=== PATIENT | male | born 1950 | race African-American/Black ===

== ENCOUNTER 2016-07-03 20:03 | Outpatient (CLI) | payer OTHER | END 2016-07-03 20:04 | disposition home or self-care (01) | DX: Z79.899 Other long term (current) drug therapy (principal); R11.0 Nausea; E11.9 Type 2 diabetes mellitus without complications ==

== ENCOUNTER 2016-10-24 14:42 | Inpatient (IN) | payer OTHER ==
[2016-10-24] MEDS ORDERED: cefTRIAXone 1 GM VIAL IVP STA (15:24)
[2016-10-24] MEDS ORDERED: SODIUM CHLORIDE 0.9% 1,000 ML IV ONE ×2 (15:24→16:44)
--- NOTE | 2016-10-24 15:31 | ED Physician Documentation ---
History of Present Illness - Stated complaint Stated Complaint: LT FOOT PX - Chief complaint Chief Complaint: Wound - History obtained from History obtained from: Patient - Additonal information Additional information: The patient is a 65-year-old diabetic male who has not been taking his diabetic medication for months since he ran out. He presents today because of increased swelling and oozing from a diabetic foot ulcer on his left second toe. It has been getting progressively worse over the past week. He has felt febrile at home. He reports similar ulcer in the past, and underwent debridement of a callus on that toe a few months ago. He is normally treated with metformin and insulin, but has not taken this medication for "months," because he ran out. He admits to polyuria and polydipsia. He denies cough, shortness of breath, abdominal pain, vomiting or diarrhea. He denies hospitalizations for DKA. Review of Systems Constitutional: reports: Fever, Chills, Fatigue Nose: denies: Congestion Throat: denies: Sore throat Cardiac: denies: Chest pain / pressure, Palpitations Respiratory: denies: Dyspnea, Cough GI: denies: Abdominal Pain, Nausea, Vomiting : denies: Dysuria Skin: denies: Rash Musculoskeletal: reports: Extremity pain (Left toe/foot). denies: Back pain Neurologic: reports: Generalized weakness. denies: Focal weakness, Headache Endocrine: reports: Polydypsia, Polyuria PD PAST MEDICAL HISTORY - Past Medical History Past Medical History: Yes Cardiovascular: Hypertension, High cholesterol Respiratory: None Endocrine/Autoimmune: Type 2 diabetes GI: GERD : None HEENT: None Psych: None Musculoskeletal: None Derm: None - Past Surgical History Past Surgical History: Yes Ortho: ACL reconstruction HEENT: Cataracts - Present Medications Home Medications: Ambulatory Orders Medication Instructions Recorded Confirmed Insulin Glargine [Lantus] 25 unit SUBQ QPM 03/31/13 12/29/13 metFORMIN [Glucophage] 1,000 mg PO ONCE 03/31/13 12/29/13 raNITIdine [Zantac] 150 mg PO DAILY 03/31/13 12/29/13 Metoprolol Tartrate 25 mg ORAL DAILY 12/29/13 12/29/13 - Allergies Allergies/Adverse Reactions: Allergies Allergy/AdvReac Type Severity Reaction Status Date / Time No Known Drug Allergies Allergy Verified 04/14/14 18:02 - Social History Does the pt smoke?: Yes Smoking Status: Current some day smoker Does the pt drink ETOH?: Yes Does the pt have substance abuse?: No - Immunizations Immunizations are current?: Yes Immunizations: TDAP current <10years PD ED PE NORMAL - Vitals Vital signs reviewed: Yes (Febrile, tachycardic, and hypertensive.) - General General: Alert and oriented X 3, Well developed/nourished - HEENT HEENT: Atraumatic, EOMI, Pharynx benign - Neck Neck: Supple, no meningeal sign, No adenopathy, No JVD - Cardiac Cardiac: No murmur, Other (Slightly rapid rate, regular rhythm) - Respiratory Respiratory: No respiratory distress, Clear bilaterally - Abdomen Abdomen: Soft, Non tender - Back Back: No CVA TTP - Derm Derm: No rash - Extremities Extremities: No edema, No calf tenderness / cord, Other (There is a weeping diabetic foot ulcer on the medial aspect of the left second toe. It has a very foul odor. There is swelling and mild surrounding erythema, without lymphangitic streaking.) - Neuro Neuro: Alert and oriented X 3, No motor deficit Results - Vitals Vitals: Vital Signs - 24 hr 10/24/16 14:55 Temperature 38.9 C H Heart Rate 109 H Respiratory 20 Rate Blood Pressure 153/79 H O2 Saturation 97 Oxygen O2 Source Room air - Labs Labs: Laboratory Tests 10/24/16 10/24/16 10/24/16 15:36 15:36 15:36 WBC 13.6 H RBC 4.19 L Hgb 12.7 L Hct 37.1 L MCV 88.4 MCH 30.3 MCHC 34.3 RDW 12.8 Plt Count 201 MPV 10.1 Neut # 11.4 H Lymph # 0.6 L [place] # 1.6 H Eos # 0.0 Baso # 0.1 Absolute Nucleated RBC 0.00 Nucleated RBCs 0.0 Sodium 129 L Potassium 4.0 Chloride 97 L Carbon Dioxide 24 Anion Gap 8.0 BUN 18 Creatinine 1.0 Estimated GFR (MDRD) 91 Glucose 295 H POC Whole Bld Glucose Lactic Acid 1.0 Calcium 8.8 Total Bilirubin 0.7 AST 26 ALT 29 Alkaline Phosphatase 88 Total Protein 7.6 Albumin 3.8 Globulin 3.8 Albumin/Globulin Ratio 1.0 Lipase 18 L 10/24/16 10/24/16 15:42 17:20 WBC RBC Hgb Hct MCV MCH MCHC RDW Plt Count MPV Neut # Lymph # [place] # Eos # Baso # Absolute Nucleated RBC Nucleated RBCs Sodium Potassium Chloride Carbon Dioxide Anion Gap BUN Creatinine Estimated GFR (MDRD) Glucose POC Whole Bld Glucose 309 H 247 H Lactic Acid Calcium Total Bilirubin AST ALT Alkaline Phosphatase Total Protein Albumin Globulin Albumin/Globulin Ratio Lipase - Rads (name of study) Left foot Radiology: Prelim report reviewed, EMP read contemporaneously, See rad report ( Soft tissue lesion. If clinical suspicion of osteomyelitis is high, further evaluation with MR scan or three-phase radionuclide bone scan may be helpful.) PD MEDICAL DECISION MAKING - ED course Complexity details: reviewed old records, reviewed results, re-evaluated patient , considered differential, d/w patient, d/w care consultant ED course: The patient's presentation is significant for diabetic foot ulcer with cellulitis. X-ray of the foot does not reveal subcutaneous emphysema or gross osteomyelitis. His blood sugar was initially elevated at 309, without evidence of ketoacidosis. Treatment in the emergency department included administration of normal saline 1 L IV, followed by normal saline at 250 mL/h. Ceftriaxone 1 g was administered IV. Repeat fingerstick blood sugar improved to 247. I discussed his condition with the hospitalist, who evaluated him in the emergency department and admitted him for further evaluation and treatment. 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
[2016-10-24 15:48] LABS: BASOPHILS # (AUTO) 0.1 10^3/uL (0.0-0.1); BASOPHILS % (AUTO) 0.6 %; EOSINOPHILS % (AUTO) 0.1 %; HCT - HEMATOCRIT 37.1 % (42.0-52.0); HGB - HEMOGLOBIN 12.7 g/dL (14.0-18.0); LYMPHOCYTES # (AUTO) 0.6 10^3/uL (1.5-3.5); LYMPHOCYTES % (AUTO) 4.1 %; MEAN CORPUSCULAR HEMOGLOBIN 30.3 pg (27.0-31.0); MEAN CORPUSCULAR HGB CONC 34.3 g/dL (32.0-36.0); MEAN CORPUSCULAR VOLUME 88.4 fL (80.0-94.0); MEAN PLATELET VOLUME 10.1 fL (7.4-11.4); MONOCYTES # (AUTO) 1.6 10^3/uL (0.0-1.0); MONOCYTES % (AUTO) 11.5 %; NEUTROPHILS # (AUTO) 11.4 10^3/uL (1.5-6.6); NEUTROPHILS % (AUTO) 83.7 %; RED BLOOD COUNT 4.19 10^6/uL (4.70-6.10); RED CELL DISTRIBUTION WIDTH 12.8 % (12.0-15.0); UNCORRECTED WHITE BLOOD COUNT 13.6 x10^3/uL; WHITE BLOOD COUNT 13.6 x10^3/uL (4.8-10.8)
[2016-10-24] MEDS ORDERED: cefTRIAXone 1 GM VIAL ONE (15:54)
[2016-10-24 15:56] LABS: BILIRUBIN,TOTAL 0.7 mg/dL (0.2-1.0); CALCIUM 8.8 mg/dL (8.5-10.3); TOTAL PROTEIN 7.6 g/dL (6.7-8.2)
--- NOTE | 2016-10-24 18:09 | XRAY Preliminary Report ---
Exam: XR Foot 3 View LT IMPRESSION: Soft tissue lesion. If clinical suspicion of osteomyelitis is high, further evaluation wi th MR scan or 3 phase radionuclide bone scan may be helpful. [facility] SITE ID: [id number]
--- NOTE | 2016-10-24 18:11 | XRAY Report ---
EXAM: LEFT FOOT RADIOGRAPHY EXAM DATE: 10/24/2016 05:48 PM. CLINICAL HISTORY: Diabetic ulcer left 2nd toe; ?osteo. COMPARISON: None. TECHNIQUE: 3 views. FINDINGS: Bones: Normal. No fractures or bone lesions. Joints: Normal. No subluxations. Soft Tissues: Mild soft tissue swelling with irregularity at the site of second toe ulcer. No foreign body. Extensive vascular calcification typical for diabetes. IMPRESSION: Soft tissue lesion. If clinical suspicion of osteomyelitis is high, further evaluation wi th MR scan or 3 phase radionuclide bone scan may be helpful. [facility] Referring Provider Line: [phone] SITE ID: [id number]
[2016-10-24] MEDS ORDERED: ONDANSETRON 4 MG/2 ML VIAL IVP PRN (18:16)
[2016-10-24] MEDS ORDERED: VANCOMYCIN PER PHARMACY IV SCH (19:00)
[2016-10-24] MEDS ORDERED: SODIUM CHLORIDE 0.9% IV SCH (19:00)
--- NOTE | 2016-10-24 19:01 | HISTORY & PHYSICAL EXAMINATION ---
Chief Complaint - Chief Complaint Chief Complaint: fever and diabetes ulcer History of Present Illness - Admitted From Admitted From:: emergence department - History Obtained From History obtained from: patient - History of Present Illness HPI Comment/Other: This is a 65-year-old male with significant past medical history of DM2, HTN, Hyperlipidmia, who present emergence department for evaluation of fever and ulcer at the second toe of left lower extremity. Patient report he has not taken his insulin for at least 4 months. When ask the reason why he did not take his insulin, patient report he has been fine "not any problem." Patient state he found his second toe became swelling about 4 days ago, then had drainage, and became foul smell. Patient also report he had fever at home. In the emergence room, he is febrile at 38.9. Patient denies any chest pain, headache, abdominal pain. There is no nausea, vomiting or diarrhea, vision changing, dysuria, or hematuria, GI bleeding. In emergence room lab test reveals some significantly test results: glucose 295 but negative ketone at urine and serum, lactic aced 1.0, WBC 13.6, Sodium 129. Xray of second toe reveals soft tissue lesion. Patient is admitted for evaluation of diabetes ulcer. Review of Systems - Constitutional Constitutional: reports: Fatigue, Fever. denies: Chills, Malaise, Poor appetite , Diaphoresis, Night sweats, Weight gain, Weight loss - Eyes Eyes: denies: Pain, Irritation, Amaurosis, Blurred vision, Spots in vision, Field loss, Vision loss, Dipolpia - Ears, Nose & Throat Ears, Nose & Throat: denies: Ear pain, Hearing loss, Hearing aids, Tinnitus, Vertigo, Nasal pain, Nosebleeds, Nasal congestion, Sore throat, Mouth lesions, Bleeding gums - Cardiovascular Cariovascular: denies: Irregular heart rate, Palpitations, Chest pain, Edema, Lightheadedness, Syncope, Exertional dyspnea, Orthopnea - Respiratory Respiratory: denies: Cough, Sputum production, Wheezing, Snoring, Hemoptysis, Orthopnea, SOB at rest, SOB with exertion, Apnea, Stridor - Gastrointestinal Gastrointestinal: denies: Abdominal pain, Abdominal distention, Constipation, Diarrhea, Change in bowel habits, Rectal bleeding, Black stools, Bloody stools, Nausea, Vomiting, Darvin blood emesis, Coffee grounds emesis, Reflux/heartburn, Poor appetite - Genitourinary Genitourinary: denies: Dysuria, Frequency, Urgency, Hematuria, Incontinence, Flank pain, Nocturia - Musculoskeletal Musculoskeletal: denies: Muscle pain, Back pain, Muscle aches, Stiffness, Limited range of motion, Muscle weakness, Gout, Joint pain - Integumentary Integumentary: reports: Lesions. denies: Rash, Pruritis, Dryness, Lumps, Acne, Pigment changes, Nail changes - Neurological Neurological: denies: General weakness, Focal weakness, Headache, Dizziness, Numbness, Memory problems, Pre-existing deficit, Abnormal gait, Seizures, Incoordination, Slurred speech - Psychiatric Psychiatric: denies: Depression, Anxiety, Suicidal, Delusions, Hallucinations, Homicidal - Endocrine Endocrine: reports: Polyuria, Polydypsia, Polyphagia. denies: Intolerance to cold, Intolerance to heat - Hematologic/Lymphatic Hematologic/Lymphatic: denies: Anemia, Bruising, Petechiae, Blood clots, Lymphadenopathy History - Past Medical History Cardiovascular: reports: Hypertension, High cholesterol Respiratory: reports: None Endocrine/Autoimmune: reports: Type 2 diabetes GI: reports: GERD : reports: None HEENT: reports: None Psych: reports: None Musculoskeletal: reports: None Derm: reports: None MRSA Hx?: No - Past Surgical History Ortho: reports: ACL reconstruction HEENT: reports: Cataracts - Family & Social History Family History: Mother: (Mom from [place], Dad from [place]), Father: Living arrangement: At home Living Situation: With spouse/s.o. - Substance History Use: Uses substance without health or social issues: Tobacco (before, quitted for 9 years) Abuse: Recurrent use of substance despite neg consequences: NONE Dependence: Experiences withdrawal or developed tolerances: NONE - POLST POLST Status: Full Code Meds/Allgy - Home Medications Home Medications: Ambulatory Orders Medication Instructions Recorded Confirmed Insulin Glargine [Lantus] 25 unit SUBQ QPM 03/31/13 12/29/13 metFORMIN [Glucophage] 1,000 mg PO ONCE 03/31/13 12/29/13 raNITIdine [Zantac] 150 mg PO DAILY 03/31/13 12/29/13 Metoprolol Tartrate 25 mg ORAL DAILY 12/29/13 12/29/13 - Allergies Allergies/Adverse Reactions: Allergies Allergy/AdvReac Type Severity Reaction Status Date / Time No Known Drug Allergies Allergy Verified 04/14/14 18:02 Exam - Vital Signs Reviewed Vital Signs: Yes Vital Signs: Vital Signs x48h Temp Pulse Resp BP Pulse Ox 10/24/16 14:55 38.9 C H 109 H 20 153/79 H 97 - Physical Exam General Appearance: positive: No acute distress, Alert. negative: Lethargic Eyes Bilateral: positive: Normal inspection, PERRL. negative: No lid inflammation, Conjunctivae nml ENT: positive: ENT inspection nml, Pharynx nml, No signs of dehydration. negative: Purulent nasal drainage, Pharyngeal erythema Neck: positive: Nml inspection, Thyroid nml, No JVD, Trachea midline. negative : Lymphadenopathy (R), Lymphadenopathy (L), Stiff neck, Swelling/bruising, Tracheal deviation Respiratory: positive: Chest non-tender, No respiratory distress, Breath sounds nml. negative: Wheezes, Rales, Rhonchi Cardiovascular: positive: Regular rate & rhythm, No murmur, No gallop. negative : Irregularly irregular, Systolic murmur, Diastolic murmur Peripheral Pulses: positive: 2+ Abdomen: positive: Non-tender, No organomegaly, Nml bowel sounds, No distention. negative: Tenderness, Guarding, Rebound Back: positive: Nml inspection. negative: CVA tenderness (R), CVA tenderness (L ) Skin: positive: Color nml, Warm, Dry, Other (drainage at the second toe laterial side of left lower extremity, mild to moderate black color of second toe.) Extremities: positive: Non-tender, Full ROM, Nml appearance. negative: Calf tenderness, Rukhsana's sign/cords Neurologic/Psychiatric: positive: Oriented x3, Motor nml, Sensation nml, Mood/ affect nml. negative: Sensory loss, Facial droop, Slurred/abnml speech, Depressed mood/affect Conclusion/Plan - Problem List (1) Diabetic foot ulcer Conclusion/Plan: uncontrolled diabetic foot ulcer, Xray indicate soft tissue lesion. Clinically the skin color is mild to moderate black but without necrosis, but with drainage , and foul smelling. 1, wound culture. pt already has antibiotics in ER, so blood culture is later to be draw in the meds floor. follow up wound culture 2, antibiotics: rocephin, and vancomycin 3, will do MRI to if osteomyolitis, follow up 4, wound care consult, follow recommendation, dressing changing Qualifiers: Diabetic foot ulcer location: toe Diabetes mellitus type: type 2 Laterality: left Non-pressure ulcer stage: unspecified non-pressure ulcer stage Qualified Code(s): E11.621 - Type 2 diabetes mellitus with foot ulcer; L97.529 - Non-pressure chronic ulcer of other part of left foot with unspecified severity (2) Diabetes mellitus with hyperglycemia Conclusion/Plan: hold metformin, initiate slide scale and follow protocol, check A1C Qualifiers: Diabetes mellitus type: type 2 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 Educate pt the importance of medical compliance for DM management. consult with social work for support (4) Hypertension Conclusion/Plan: stable, will resume home meds after reconciliation of pharmacy (5) GERD (gastroesophageal reflux disease) Conclusion/Plan: stable, add Pepcid - Lab Results Fish Bones: 10/25/16 06:00 10/25/16 06:00 Issues/Core Measures - Anticipated LOS Anticipated Stay Length: 2 or more midnights (expect more than two night for diabetes ulcer healing) - Issues Hospital Issues and Management Plan: Lovenox for DVT prophylaxis - DVT/VTE - Prophylaxis VTE/DVT Device ordered at admit?: Yes
[2016-10-24] MEDS: ACETAMINOPHEN 325 MG TABLET PO PRN (19:23)
[2016-10-24] MEDS ORDERED: ACETAMINOPHEN 325 MG TABLET PO ONE (19:26)
[2016-10-24 20:21] LABS: HEMOGLOBIN A1C 1.49 g/dL
--- NOTE | 2016-10-24 20:23 | CT Preliminary Report ---
Exam: CT Abdomen Angio IMPRESSION: 1. Negative angiogram. No aneurysm or dissection. 2. Cholelithiasis. [facility] SITE ID: [id number]
--- NOTE | 2016-10-24 20:24 | CT Report ---
EXAM: CT ANGIOGRAM ABDOMEN AND PELVIS WITH CONTRAST EXAM DATE: 10/24/2016 07:16 PM. CLINICAL HISTORY: AAA, bruit sound at abdomen. COMPARISONS: None. TECHNIQUE: Routine helical CT angiogram imaging was performed through the abdomen and pelvis in the a rterial phase. IV contrast: 100 cc Isovue-300. Enteric contrast: No. Reconstructions: Coronal, sagitt al, and 3D MIP reconstructions. In accordance with CT protocol optimization, one or more of the following dose reduction techniques w ere utilized for this exam: automated exposure control, adjustment of mA and/or KV based on patient s ize, or use of iterative reconstructive technique. FINDINGS: Vasculature: Normal. No aneurysm, dissection, or significant atherosclerotic disease of the abdominal aorta and iliac arteries. The visualized mesenteric and solid organ vascular structures are also wit hin normal limits. Lung Bases: Normal. Abdominal Solid Organs: Unremarkable liver, spleen, adrenal glands, pancreas, and kidneys. Multiple g allstones. No ductal dilation. Peritoneal Cavity: Normal. No free fluid, free air, or acute inflammatory process. Normal appendix. Pelvic Organs: Normal. The bladder and visualized pelvic organs are within normal limits. Bones: No significant abnormality. Other: None. IMPRESSION: 1. Negative angiogram. No aneurysm or dissection. 2. Cholelithiasis. [facility] Referring Provider Line: [phone] SITE ID: [id number]
[2016-10-24] MEDS: SODIUM CHLORIDE FLUSH 0.9% 10 ML SYRINGE IVP SCH (20:33)
[2016-10-24] MEDS: VANCOMYCIN INJ 1 GM in SODIUM CHLORIDE 0.9% 250 ML IV SCH (20:33)
[2016-10-24] MEDS: INSULIN ASPART 300 UNIT/3 ML PEN SUBQ SCH (20:36)
[2016-10-24] MEDS: SODIUM CHLORIDE 0.9% 1,000 ML IV SCH (22:39)
[2016-10-24 22:49] LABS: BILIRUBIN,URINE NEGATIVE (NEGATIVE)
[2016-10-24 22:51] LABS: UA CHARGE (STRIP ONLY) YES; UR CULTURE IF IND NOT INDICATED
[2016-10-25] MEDS: ACETAMINOPHEN 325 MG TABLET PO PRN ×2 (00:30→20:33)
[2016-10-25] MEDS: SODIUM CHLORIDE 0.9% 1,000 ML IV SCH ×3 (04:26→17:32)
[2016-10-25] MEDS: SODIUM CHLORIDE FLUSH 0.9% 10 ML SYRINGE IVP SCH ×3 (04:27→20:33)
[2016-10-25 06:15] LABS: BASOPHILS % (AUTO) 0.7 %; EOSINOPHILS % (AUTO) 0.4 %; HCT - HEMATOCRIT 35.2 % (42.0-52.0); HGB - HEMOGLOBIN 12.2 g/dL (14.0-18.0); LYMPHOCYTES % (AUTO) 7.7 %; MEAN CORPUSCULAR HEMOGLOBIN 30.8 pg (27.0-31.0); MEAN CORPUSCULAR HGB CONC 34.6 g/dL (32.0-36.0); MEAN CORPUSCULAR VOLUME 89.1 fL (80.0-94.0); MEAN PLATELET VOLUME 9.8 fL (7.4-11.4); MONOCYTES % (AUTO) 12.6 %; NEUTROPHILS % (AUTO) 78.6 %; RED BLOOD COUNT 3.95 10^6/uL (4.70-6.10); RED CELL DISTRIBUTION WIDTH 12.9 % (12.0-15.0); UNCORRECTED WHITE BLOOD COUNT 13.9 x10^3/uL; WHITE BLOOD COUNT 13.9 x10^3/uL (4.8-10.8)
[2016-10-25 06:28] LABS: ALBUMIN/GLOBULIN RATIO 0.9 (1.0-2.2); BILIRUBIN,TOTAL 0.8 mg/dL (0.2-1.0); MAGNESIUM 1.8 mg/dL (1.7-2.8); POTASSIUM 3.7 mmol/L (3.5-5.0); TOTAL PROTEIN 6.7 g/dL (6.7-8.2)
[2016-10-25] MEDS: VANCOMYCIN INJ 1 GM in SODIUM CHLORIDE 0.9% 250 ML IV SCH ×2 (06:35→18:20)
[2016-10-25 06:53] LABS: BAND NEUTROPHILS % (MANUAL) 2 %; LYMPHOCYTES % (MANUAL) 11 %; NEUTROPHILS % (MANUAL) 78 %; NP AUTO DIFFERENTIAL? YES; NP MAN DIFFERENTIAL? NO; PLATELET ESTIMATE, MANUAL NORMAL (130-450,000) (NORMAL); TOTAL CELLS COUNTED 100
[2016-10-25] MEDS: INSULIN ASPART 300 UNIT/3 ML PEN SUBQ SCH ×4 (08:24→20:32)
[2016-10-25] MEDS ORDERED: cefTRIAXone 1 GM VIAL IVP SCH (09:00)
[2016-10-25] MEDS: FAMOTIDINE 20 MG TABLET PO SCH (09:03)
[2016-10-25] MEDS: ENOXAPARIN 40 MG/0.4 ML SYRINGE SUBQ SCH (09:03)
[2016-10-25] MEDS: POLYETHYLENE GLYCOL 3350 17 GM PACKET PO SCH (09:03)
--- NOTE | 2016-10-25 11:24 | PROVIDER PROGRESS NOTE ---
Subjective - Prog Note Date Prog Note Date: 10/25/16 - Subjective Pt reports feeling: Improved Subjective: pt report he feel better, fever is down, no chill. pain is a good control. Current Medications - Current Medications Current Medications: Active Medications Acetaminophen (Tylenol) 650 mg PO Q4HR PRN PRN Reason: Pain 1 to 4 Last Admin: 10/25/16 00:30 Dose: 650 mg Acetaminophen/Hydrocodone Bitart ([place] 5/325) 1 tab PO Q4HR PRN PRN Reason: Pain 5 to 7 Ceftriaxone Sodium (Rocephin) 1 gm IVP DAILY [facility], [facility] Last Admin: 10/25/16 09:03 Dose: 1 gm Enoxaparin Sodium (Lovenox) 40 mg SUBQ DAILY [facility] Last Admin: 10/25/16 09:03 Dose: 40 mg Famotidine (Pepcid) 20 mg PO DAILY [facility] Last Admin: 10/25/16 09:03 Dose: 20 mg Sodium Chloride (Normal Saline 0.9%) 1,000 mls @ 125 mls/hr IV .Q8H [facility] Last Admin: 10/25/16 05:51 Dose: 125 mls/hr Vancomycin HCl 1 gm/ Sodium (Chloride) 250 mls @ 167 mls/hr IV Q12H [facility] Last Admin: 10/25/16 06:35 Dose: 167 mls/hr Insulin Aspart (Novolog) 2 - 10 unit SUBQ 0800,1200,1700,2100 [facility] PRN Reason: Protocol Last Admin: 10/25/16 08:24 Dose: 2 unit Ondansetron HCl (Zofran Inj) 4 mg IVP Q6HR PRN PRN Reason: Nausea / Vomiting Polyethylene Glycol (Miralax) 17 gm PO DAILY [facility] Last Admin: 10/25/16 09:03 Dose: 17 gm Sodium Chloride (Normal Saline Flush 0.9%) 10 ml IVP PRN PRN PRN Reason: NEEDED PER PROVIDER ORDERS Sodium Chloride (Normal Saline Flush 0.9%) 10 ml IVP Q8HR [facility] Last Admin: 10/25/16 04:27 Dose: Not Given Insulin Glargine [Lantus] 25 unit SUBQ QPM 03/31/13 metFORMIN [Glucophage] 1,000 mg PO ONCE 03/31/13 raNITIdine [Zantac] 150 mg PO DAILY 03/31/13 Metoprolol Tartrate 25 mg ORAL DAILY 12/29/13 Objective - Vital Signs/Intake & Output Vital Signs: Vital Signs x48h Temp Pulse Resp BP Pulse Ox 10/25/16 11:01 37.9 C H 85 18 132/71 H 98 10/25/16 08:12 37.7 C H 88 18 136/56 H 99 10/25/16 05:40 37.9 C H 89 16 144/79 H 99 Intake & Output: Intake & Output 10/22/16 10/23/16 10/24/16 10/25/16 23:59 23:59 23:59 23:59 Intake Total 1148 1549 Output Total 675 600 Balance 473 949 - Objective General Appearance: positive: No acute distress, Alert. negative: Lethargic Eyes Bilateral: positive: Normal inspection, PERRL. negative: No lid inflammation, Conjunctivae nml ENT: positive: ENT inspection nml, Pharynx nml. negative: Purulent nasal drainage, Pharyngeal erythema Neck: positive: Nml inspection, Thyroid nml, Trachea midline. negative: Thyromegaly, Lymphadenopathy (R), Lymphadenopathy (L), Stiff neck, Swelling/ bruising Respiratory: positive: Chest non-tender, No respiratory distress, Breath sounds nml. negative: Wheezes, Rales, Rhonchi Cardiovascular: positive: Regular rate & rhythm, No murmur, No gallop. negative : Bradycardia, Systolic murmur, Diastolic murmur Peripheral Pulses: 2+ Radial (R), 2+ Radial (L), 2+ Dorsalis pedis (R), 2+ Dorsalis pedis (L) Abdomen: positive: Non-tender, Nml bowel sounds, No distention. negative: Tenderness, Guarding, Rebound Back: positive: Nml inspection. negative: CVA tenderness (R), CVA tenderness (L ) Skin: positive: Color nml (except the second toe), Warm, Dry, Other (bilateral color changing on the second toe. left second toe with swelling, black color, and drainage.). negative: Diaphoresis Extremities: positive: Non-tender, Full ROM, Nml appearance. negative: Calf tenderness, Joint swelling Neurologic/Psychiatric: positive: Oriented x3, Motor nml, Sensation nml, Mood/ affect nml. negative: Sensory loss, Facial droop, Slurred/abnml speech, Depressed mood/affect - Lab Results Fish Bones: 10/25/16 06:00 10/25/16 06:00 Other Labs: Lab Results x24hrs 10/25/16 10/25/16 10/25/16 Range/Units 10:39 07:26 06:00 WBC (4.8-10.8) x10^3/uL RBC (4.70-6.10) 10^6/uL Hgb (14.0-18.0) g/dL Hct (42.0-52.0) % MCV (80.0-94.0) fL MCH (27.0-31.0) pg MCHC (32.0-36.0) g/dL RDW (12.0-15.0) % Plt Count (130-450) 10^3/uL MPV (7.4-11.4) fL Neut # Lymph # [place] # Eos # Baso # Absolute Nucleated RBC Total Counted Band Neuts % (Manual) (0 - 10) % Neutrophils # (Manual) (1.5-6.6) 10^3/uL Lymphocytes # (Manual) (1.5-3.5) 10^3/uL Monocytes # (Manual) (0.0-1.0) 10^3/uL Nucleated RBCs Differential Comment Platelet Estimate (NORMAL) RBC Morph Micro Appear (NORMAL) Sodium 134 L (135-145) mmol/L Potassium 3.7 (3.5-5.0) mmol/L Chloride 103 (101-111) mmol/L Carbon Dioxide 26 (21-32) mmol/L Anion Gap 5.0 L (6-13) BUN 14 (6-20) mg/dL Creatinine 1.0 (0.6-1.2) mg/dL Estimated GFR (MDRD) 91 (>89) Glucose 186 H (70-100) mg/dL POC Whole Bld Glucose 295 H 173 H (70 - 100) mg/dL Calcium 8.0 L (8.5-10.3) mg/dL Magnesium 1.8 (1.7-2.8) mg/dL Total Bilirubin 0.8 (0.2-1.0) mg/dL AST 37 (10-42) IU/L ALT 37 (10-60) IU/L Alkaline Phosphatase 81 (42-121) IU/L Total Protein 6.7 (6.7-8.2) g/dL Albumin 3.1 L (3.2-5.5) g/dL Globulin 3.6 (2.1-4.2) g/dL Albumin/Globulin Ratio 0.9 L (1.0-2.2) Urine Color Urine Clarity (CLEAR) Urine pH (5.0-7.5) PH Ur Specific [place] (1.002-1.030) Urine Protein (NEGATIVE) mg/dL Urine Glucose (UA) (NEGATIVE) mg/dL Urine Ketones (NEGATIVE) mg/dL Urine Occult Blood (NEGATIVE) Urine Nitrite (NEGATIVE) Urine Bilirubin (NEGATIVE) Urine Urobilinogen (NORMAL) E.U./dL Ur Leukocyte Esterase (NEGATIVE) Ur Microscopic Review Urine Culture Comments Urine Opiates Screen (NEGATIVE) Ur Oxycodone Screen (NEGATIVE) Urine Methadone Screen (NEGATIVE) Ur Propoxyphene Screen (NEGATIVE) Ur Barbiturates Screen (NEGATIVE) Ur Tricyclics Screen (NEGATIVE) Ur Phencyclidine Scrn (NEGATIVE) Ur Amphetamine Screen (NEGATIVE) U Methamphetamines Scrn (NEGATIVE) U Benzodiazepines Scrn (NEGATIVE) Urine Cocaine Screen (NEGATIVE) U Cannabinoids Screen (NEGATIVE) 10/25/16 10/24/16 10/24/16 Range/Units 06:00 22:34 19:38 WBC 13.9 H (4.8-10.8) x10^3/uL RBC 3.95 L (4.70-6.10) 10^6/uL Hgb 12.2 L (14.0-18.0) g/dL Hct 35.2 L (42.0-52.0) % MCV 89.1 (80.0-94.0) fL MCH 30.8 (27.0-31.0) pg MCHC 34.6 (32.0-36.0) g/dL RDW 12.9 (12.0-15.0) % Plt Count 195 (130-450) 10^3/uL MPV 9.8 (7.4-11.4) fL Neut # Not Reportable Lymph # Not Reportable [place] # Not Reportable Eos # Not Reportable Baso # Not Reportable Absolute Nucleated RBC Not Reportable Total Counted 100 Band Neuts % (Manual) 2 (0 - 10) % Neutrophils # (Manual) 11.1 H (1.5-6.6) 10^3/uL Lymphocytes # (Manual) 1.5 (1.5-3.5) 10^3/uL Monocytes # (Manual) 1.3 H (0.0-1.0) 10^3/uL Nucleated RBCs Not Reportable Differential Comment MANUAL DIFFERENTIAL Platelet Estimate NORMAL (130-450,000) (NORMAL) RBC Morph Micro Appear NORMAL APPEARANCE (NORMAL) Sodium (135-145) mmol/L Potassium (3.5-5.0) mmol/L Chloride (101-111) mmol/L Carbon Dioxide (21-32) mmol/L Anion Gap (6-13) BUN (6-20) mg/dL Creatinine (0.6-1.2) mg/dL Estimated GFR (MDRD) (>89) Glucose (70-100) mg/dL POC Whole Bld Glucose 194 H (70 - 100) mg/dL Calcium (8.5-10.3) mg/dL Magnesium (1.7-2.8) mg/dL Total Bilirubin (0.2-1.0) mg/dL AST (10-42) IU/L ALT (10-60) IU/L Alkaline Phosphatase (42-121) IU/L Total Protein (6.7-8.2) g/dL Albumin (3.2-5.5) g/dL Globulin (2.1-4.2) g/dL Albumin/Globulin Ratio (1.0-2.2) Urine Color YELLOW Urine Clarity CLEAR (CLEAR) Urine pH 5.0 (5.0-7.5) PH Ur Specific [place] 1.015 (1.002-1.030) Urine Protein TRACE (NEGATIVE) mg/dL Urine Glucose (UA) >=1000 H (NEGATIVE) mg/dL Urine Ketones NEGATIVE (NEGATIVE) mg/dL Urine Occult Blood TRACE-INTA (NEGATIVE) Urine Nitrite NEGATIVE (NEGATIVE) Urine Bilirubin NEGATIVE (NEGATIVE) Urine Urobilinogen 0.2 (NORMAL) (NORMAL) E.U./dL Ur Leukocyte Esterase NEGATIVE (NEGATIVE) Ur Microscopic Review NOT INDICATED Urine Culture Comments NOT INDICATED Urine Opiates Screen NEGATIVE (NEGATIVE) Ur Oxycodone Screen NEGATIVE (NEGATIVE) Urine Methadone Screen NEGATIVE (NEGATIVE) Ur Propoxyphene Screen NEGATIVE (NEGATIVE) Ur Barbiturates Screen NEGATIVE (NEGATIVE) Ur Tricyclics Screen NEGATIVE (NEGATIVE) Ur Phencyclidine Scrn NEGATIVE (NEGATIVE) Ur Amphetamine Screen NEGATIVE (NEGATIVE) U Methamphetamines Scrn NEGATIVE (NEGATIVE) U Benzodiazepines Scrn NEGATIVE (NEGATIVE) Urine Cocaine Screen NEGATIVE (NEGATIVE) U Cannabinoids Screen NEGATIVE (NEGATIVE) Assessment/Plan - Problem List (1) Diabetic foot ulcer Impression: pt's fever is graduate downing, continue antibiotics to treat order MRI to R/O osteomyeolitis, will follow up if consult to orthopedics Qualifiers: Diabetic foot ulcer location: toe Diabetes mellitus type: type 2 Laterality: left Non-pressure ulcer stage: unspecified non-pressure ulcer stage Qualified Code(s): E11.621 - Type 2 diabetes mellitus with foot ulcer; L97.529 - Non-pressure chronic ulcer of other part of left foot with unspecified severity (2) Diabetes mellitus with hyperglycemia Impression: pt did not take insulin at home for at least four months. A1C is 12 now. Tight control pt's glucose level, add high slide scale will adjust insulin follow glucose level Qualifiers: Diabetes mellitus type: type 2 Diabetes mellitus fdc insulin use: unspecified fdc insulin use status Qualified Code(s): E11.65 - Type 2 diabetes mellitus with hyperglycemia (3) Medical non-compliance Impression: continue to education to pt the importance of medical compliance. (4) Hypertension Impression: stable, will resume home meds after reconciliation from pharmacy (5) GERD (gastroesophageal reflux disease) Impression: stable, on Pepcid
[2016-10-25] MEDS ORDERED: GADOBUTROL 10 MMOL/10 ML VIAL IVP ONE (16:59)
--- NOTE | 2016-10-25 17:50 | MRI Preliminary Report ---
Exam: MRI Foot LT W/WO IMPRESSION: 1. Osteomyelitis of the base of the middle phalanx of the second digit. Surrounding soft tissue infla mmation. Probable soft tissue inflammation of the forefoot both plantar and dorsal aspects. 2. No visible abscess. [facility] SITE ID: [id number]
--- NOTE | 2016-10-25 17:56 | MRI Report ---
EXAM: LEFT FOREFOOT MRI WITHOUT AND WITH CONTRAST EXAM DATE: 10/25/2016 05:26 p.m. CLINICAL HISTORY: Left second digit swelling and discoloration. Diabetic. Question osteomyelitis. COMPARISON: None. TECHNIQUE: Multiplanar, multisequence T1-weighted and fluid-sensitive sequences of the forefoot befor e and after administration of intravenous contrast. IV contrast: 9 mL of Gadavist. Other: None. FINDINGS: Bones: There is low T1, high T2 signal change in the base of the middle phalanx of the second digit w ith accompanying contrast enhancement and surrounding soft tissue swelling. The findings are consiste nt with osteomyelitis. Marrow edema is also visible in the head of the proximal phalanx of the second digit. Joints: Mild osteoarthritis of the first metatarsophalangeal joint and the interphalangeal joint of t he great toe. There is moderate osteoarthritis of the remaining interphalangeal joints. Articular Cartilage: See above. Ligaments: The visualized collateral ligaments are intact. Tendons: The flexor and extensor tendons are unremarkable. Musculature: There is fatty atrophy of the intrinsic muscles of the foot. There is minimal edema of t he muscles, which is most likely reactive. Other: There is subcutaneous edema of the dorsum and plantar aspect of the foot and digits. Soft tiss ue inflammation is most marked in the second digit. There is no visible abscess. IMPRESSION: 1. Osteomyelitis of the base of the middle phalanx of the second digit. Surrounding soft tissue infla mmation. Probable soft tissue inflammation of the forefoot both plantar and dorsal aspects. 2. No visible abscess. [facility] SECTION Referring Provider Line: [phone] SITE ID: [id number]
[2016-10-26] MEDS: SODIUM CHLORIDE 0.9% 1,000 ML IV SCH ×3 (02:18→16:24)
[2016-10-26] MEDS: SODIUM CHLORIDE FLUSH 0.9% 10 ML SYRINGE IVP SCH ×3 (05:36→22:14)
[2016-10-26] MEDS: VANCOMYCIN INJ 1 GM in SODIUM CHLORIDE 0.9% 250 ML IV SCH (06:39)
[2016-10-26] MEDS: ACETAMINOPHEN 325 MG TABLET PO PRN ×2 (07:52→20:45)
--- NOTE | 2016-10-26 08:13 | PROVIDER PROGRESS NOTE ---
Subjective - Prog Note Date Prog Note Date: 10/26/16 - Subjective Pt reports feeling: Improved Subjective: pt state he feel better, pain is good controlled, no drainage. Current Medications - Current Medications Current Medications: Active Medications Acetaminophen (Tylenol) 650 mg PO Q4HR PRN PRN Reason: Pain 1 to 4 Last Admin: 10/26/16 07:52 Dose: 650 mg Acetaminophen/Hydrocodone Bitart ([place] 5/325) 1 tab PO Q4HR PRN PRN Reason: Pain 5 to 7 Enoxaparin Sodium (Lovenox) 40 mg SUBQ DAILY [facility] Last Admin: 10/26/16 08:40 Dose: 40 mg Famotidine (Pepcid) 20 mg PO DAILY [facility] Last Admin: 10/26/16 08:39 Dose: 20 mg Sodium Chloride (Normal Saline 0.9%) 1,000 mls @ 125 mls/hr IV .Q8H [facility] Last Admin: 10/26/16 02:18 Dose: 125 mls/hr Piperacillin Sod/Tazobactam (Sod 3.375 gm/ Sodium Chloride) 100 mls @ 200 mls/ hr IV Q6H [facility] Last Admin: 10/26/16 08:40 Dose: 200 mls/hr Insulin Aspart (Novolog) 3 - 11 unit SUBQ 0800,1200,1700,2100 [facility] PRN Reason: Protocol Last Admin: 10/26/16 12:00 Dose: 7 unit Insulin Aspart (Novolog) 3 unit SUBQ TIDWM [facility] Stop: 10/27/16 04:00 Insulin Glargine (Lantus Solostar) 25 unit SUBQ QPM [facility] Metoprolol Tartrate (Lopressor) 25 mg PO DAILY [facility] Last Admin: 10/26/16 08:39 Dose: 25 mg Ondansetron HCl (Zofran Inj) 4 mg IVP Q6HR PRN PRN Reason: Nausea / Vomiting Polyethylene Glycol (Miralax) 17 gm PO DAILY [facility] Last Admin: 10/26/16 08:40 Dose: Not Given Sodium Chloride (Normal Saline Flush 0.9%) 10 ml IVP PRN PRN PRN Reason: NEEDED PER PROVIDER ORDERS Sodium Chloride (Normal Saline Flush 0.9%) 10 ml IVP Q8HR [facility] Last Admin: 10/26/16 05:36 Dose: Not Given Insulin Glargine [Lantus] 25 unit SUBQ QPM 03/31/13 metFORMIN [Glucophage] 1,000 mg PO ONCE 03/31/13 raNITIdine [Zantac] 150 mg PO DAILY 03/31/13 Metoprolol Tartrate 25 mg ORAL DAILY 12/29/13 Objective - Vital Signs/Intake & Output Vital Signs: Vital Signs x48h Temp Pulse Resp BP Pulse Ox 10/26/16 04:18 37.8 C H 85 16 153/74 H 99 Intake & Output: Intake & Output 10/23/16 10/24/16 10/25/16 10/26/16 23:59 23:59 23:59 23:59 Intake Total 1148 4367 1377 Output Total 675 2320 Balance 473 2047 1377 - Objective General Appearance: positive: No acute distress, Alert. negative: Lethargic Eyes Bilateral: positive: Normal inspection, PERRL. negative: No lid inflammation, Conjunctivae nml ENT: positive: ENT inspection nml, Pharynx nml, No signs of dehydration. negative: Purulent nasal drainage, Pharyngeal erythema Neck: positive: Nml inspection, Thyroid nml, Trachea midline. negative: Thyromegaly, Lymphadenopathy (R), Lymphadenopathy (L), Stiff neck, Swelling/ bruising Respiratory: positive: Chest non-tender, No respiratory distress, Breath sounds nml. negative: Wheezes, Rales, Rhonchi Cardiovascular: positive: Regular rate & rhythm, No murmur, No gallop. negative : Tachycardia, Bradycardia, Systolic murmur, Diastolic murmur Peripheral Pulses: 2+ Radial (R), 2+ Radial (L), 2+ Dorsalis pedis (R), 2+ Dorsalis pedis (L) Abdomen: positive: Non-tender, Nml bowel sounds, No distention. negative: Tenderness, Guarding, Rebound Back: positive: Nml inspection. negative: CVA tenderness (R), CVA tenderness (L ) Skin: positive: Warm, Dry, Laceration (cm), Other (wound and ulcer at left second toe). negative: Diaphoresis Extremities: positive: Non-tender, Full ROM. negative: Calf tenderness, Rukhsana' s sign/cords Neurologic/Psychiatric: positive: Oriented x3, Sensation nml, Mood/affect nml. negative: Sensory loss, Facial droop, Slurred/abnml speech, Depressed mood/ affect - Lab Results Fish Bones: 10/26/16 08:58 10/26/16 08:58 Other Labs: Lab Results x24hrs 10/26/16 10/26/16 10/25/16 Range/Units 07:25 06:27 20:07 POC Whole Bld Glucose 207 H 268 H (70 - 100) mg/dL Last Dose Date 10-25-16 Last Dose Time 1900 Vancomycin Trough 8.7 (5.0-15.0) ug/mL 10/25/16 10/25/16 Range/Units 17:24 10:39 POC Whole Bld Glucose 160 H 295 H (70 - 100) mg/dL Last Dose Date Last Dose Time Vancomycin Trough (5.0-15.0) ug/mL Assessment/Plan - Problem List (1) Diabetic foot ulcer Impression: called orthopedics surgery, consult with surgeon. Dr. Carter came to see pt, pt is planing to have surgery tomorrow change rocephin to zosyn to cover for pseudo. since pt's temperature is not fever but slight above 37 degree wound consult, follow up recommendation. dressing changing Qualifiers: Diabetic foot ulcer location: toe Diabetes mellitus type: type 2 Laterality: left Non-pressure ulcer stage: unspecified non-pressure ulcer stage Qualified Code(s): E11.621 - Type 2 diabetes mellitus with foot ulcer; L97.529 - Non-pressure chronic ulcer of other part of left foot with unspecified severity (2) Diabetes mellitus with hyperglycemia Impression: glucose is still some high. pt's home insulin dosage and type is not reconciliated yet, call pharmacy, she state because of weekend, she can not confirm with his doctor. 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
[2016-10-26] MEDS: METOPROLOL TARTRATE 25 MG TABLET PO SCH (08:39)
[2016-10-26] MEDS: FAMOTIDINE 20 MG TABLET PO SCH (08:39)
[2016-10-26] MEDS: PIPERACILLIN/TAZOBACTAM 3.375 GM in SODIUM CHLORIDE 0.9% MINIBAG 100 ML IV SCH ×3 (08:40→20:45)
[2016-10-26] MEDS: ENOXAPARIN 40 MG/0.4 ML SYRINGE SUBQ SCH (08:40)
[2016-10-26] MEDS: POLYETHYLENE GLYCOL 3350 17 GM PACKET PO SCH (08:40)
[2016-10-26] MEDS: INSULIN ASPART 300 UNIT/3 ML PEN SUBQ SCH ×6 (08:40→22:12)
[2016-10-26 09:15] LABS: ALBUMIN/GLOBULIN RATIO 0.8 (1.0-2.2); BILIRUBIN,TOTAL 0.5 mg/dL (0.2-1.0); CREATININE 0.8 mg/dL (0.6-1.2); POTASSIUM 3.8 mmol/L (3.5-5.0); TOTAL PROTEIN 6.7 g/dL (6.7-8.2)
[2016-10-26 09:18] LABS: BASOPHILS # (AUTO) 0.1 10^3/uL (0.0-0.1); BASOPHILS % (AUTO) 0.7 %; EOSINOPHILS # (AUTO) 0.1 10^3/uL (0.0-0.7); EOSINOPHILS % (AUTO) 0.6 %; HCT - HEMATOCRIT 34.9 % (42.0-52.0); HGB - HEMOGLOBIN 11.9 g/dL (14.0-18.0); LYMPHOCYTES % (AUTO) 9.4 %; MEAN CORPUSCULAR HEMOGLOBIN 30.5 pg (27.0-31.0); MEAN CORPUSCULAR HGB CONC 34.2 g/dL (32.0-36.0); MEAN CORPUSCULAR VOLUME 89.1 fL (80.0-94.0); MONOCYTES # (AUTO) 1.2 10^3/uL (0.0-1.0); NEUTROPHILS # (AUTO) 7.9 10^3/uL (1.5-6.6); NEUTROPHILS % (AUTO) 77.3 %; RED BLOOD COUNT 3.92 10^6/uL (4.70-6.10); RED CELL DISTRIBUTION WIDTH 12.7 % (12.0-15.0); UNCORRECTED WHITE BLOOD COUNT 10.3 x10^3/uL; WHITE BLOOD COUNT 10.3 x10^3/uL (4.8-10.8)
--- NOTE | 2016-10-26 11:58 | CONSULTATION NOTE ---
DATE OF CONSULTATION: 10/26/2016 00:00:00 REQUESTING PROVIDER: REASON FOR CONSULTATION: Osteomyelitis, left second toe. HISTORY OF PRESENT ILLNESS: The patient is a 65-year-old diabetic male who for a period of time has b een negligent in using his insulin for chronic diabetes. The patient has developed chronic oozing of the second toe and swelling of his foot, and because of this with worsening and feeling of malaise an d fevers, the patient came to the emergency room and was found to have an ulceration of his second to e and a very swollen foot with workup revealing osteomyelitis of the second toe. The patient's history and physical exam are delineated well in his admit note. The examination today shows a generalized swelling of the left foot with some ulceration of the second toe on its medial bessie rder at the PIP joint level. There is no great drainage occurring, but there is enlargement and foul smell. The proximal foot is mildly swollen, but there is no evidence of spreading abscess or cellulit is. His neurovascular exam shows diminished sensation, otherwise intact. He does not have generalized lymphadenopathy. IMPRESSION: The patient has osteomyelitis of left second toe as documented by MRI scan with ulceratio n and multiorganism infection most likely. RECOMMENDATION: Second toe amputation at the MP joint level. I have discussed this procedure with the patient, he is prepared to proceed and understands potential risks and complications. Surgery schedu led for 10/27/2016. JOB #: [id number] EXT JOB #:[id number]
[2016-10-26] MEDS: VANCOMYCIN 1.25 GM/NS 250 ML 250 ML IV SCH (18:35)
[2016-10-26] MEDS ORDERED: INSULIN GLARGINE 300 UNIT/3 ML PEN SUBQ SCH (21:00)
[2016-10-26] MEDS: INSULIN GLARGINE 300 UNIT/3 ML PEN SUBQ SCH (22:13)
[2016-10-27] MEDS: PIPERACILLIN/TAZOBACTAM 3.375 GM in SODIUM CHLORIDE 0.9% MINIBAG 100 ML IV SCH ×2 (02:14→08:42)
[2016-10-27] MEDS: SODIUM CHLORIDE 0.9% 1,000 ML IV SCH ×3 (02:15→19:01)
[2016-10-27] MEDS: HYDROcod/ACETAM 5/325 MG TABLET PO PRN ×2 (02:17→06:31)
[2016-10-27] MEDS: VANCOMYCIN 1.25 GM/NS 250 ML 250 ML IV SCH ×2 (06:31→20:04)
[2016-10-27] MEDS: SODIUM CHLORIDE FLUSH 0.9% 10 ML SYRINGE IVP SCH ×3 (06:52→21:06)
[2016-10-27] MEDS: INSULIN ASPART 300 UNIT/3 ML PEN SUBQ SCH ×4 (08:38→21:02)
[2016-10-27] MEDS: METOPROLOL TARTRATE 25 MG TABLET PO SCH (08:39)
[2016-10-27] MEDS: ENOXAPARIN 40 MG/0.4 ML SYRINGE SUBQ SCH (08:39)
[2016-10-27] MEDS: FAMOTIDINE 20 MG TABLET PO SCH (08:39)
[2016-10-27] MEDS: POLYETHYLENE GLYCOL 3350 17 GM PACKET PO SCH (08:40)
--- NOTE | 2016-10-27 08:43 | PROVIDER PROGRESS NOTE ---
Subjective - Subjective Pt reports feeling: Improved Subjective: patient report he feel better. pt's state pt began his second toe infection from 02/21, not as pt report to me his infection began four days ago. pt will have the surgery to remove the left second toe today Current Medications - Current Medications Current Medications: Active Medications Acetaminophen (Tylenol) 650 mg PO Q4HR PRN PRN Reason: Pain 1 to 4 Last Admin: 10/26/16 20:45 Dose: 650 mg Acetaminophen/Hydrocodone Bitart ([place] 5/325) 1 tab PO Q4HR PRN PRN Reason: Pain 5 to 7 Last Admin: 10/27/16 06:31 Dose: 1 tab Enoxaparin Sodium (Lovenox) 40 mg SUBQ DAILY [facility] Last Admin: 10/27/16 08:39 Dose: Not Given Famotidine (Pepcid) 20 mg PO DAILY [facility] Last Admin: 10/27/16 08:39 Dose: Not Given Sodium Chloride (Normal Saline 0.9%) 1,000 mls @ 125 mls/hr IV .Q8H [facility] Last Admin: 10/27/16 02:15 Dose: 125 mls/hr Piperacillin Sod/Tazobactam (Sod 3.375 gm/ Sodium Chloride) 100 mls @ 200 mls/ hr IV Q6H [facility] Last Admin: 10/27/16 08:42 Dose: 200 mls/hr Vancomycin/Sodium Chloride (Vanco/Sod Chloride 0.9%) 250 mls @ 160 mls/hr IV Q12H [facility] Last Admin: 10/27/16 06:31 Dose: 160 mls/hr Insulin Aspart (Novolog) 3 - 11 unit SUBQ 0800,1200,1700,2100 [facility] PRN Reason: Protocol Last Admin: 10/27/16 08:38 Dose: Not Given Insulin Glargine (Lantus Solostar) 5 unit SUBQ QPM [facility] Last Admin: 10/26/16 22:13 Dose: 5 unit Metoprolol Tartrate (Lopressor) 25 mg PO DAILY [facility] Last Admin: 10/27/16 08:39 Dose: 25 mg Ondansetron HCl (Zofran Inj) 4 mg IVP Q6HR PRN PRN Reason: Nausea / Vomiting Polyethylene Glycol (Miralax) 17 gm PO DAILY [facility] Last Admin: 10/27/16 08:40 Dose: Not Given Sodium Chloride (Normal Saline Flush 0.9%) 10 ml IVP PRN PRN PRN Reason: NEEDED PER PROVIDER ORDERS Sodium Chloride (Normal Saline Flush 0.9%) 10 ml IVP Q8HR [facility] Last Admin: 10/27/16 06:52 Dose: Not Given Insulin Glargine [Lantus] 25 unit SUBQ QPM 03/31/13 metFORMIN [Glucophage] 1,000 mg PO ONCE 03/31/13 raNITIdine [Zantac] 150 mg PO DAILY 03/31/13 Metoprolol Tartrate 25 mg ORAL DAILY 12/29/13 Objective - Vital Signs/Intake & Output Vital Signs: Vital Signs x48h Temp Pulse Resp BP Pulse Ox 10/27/16 07:44 37.4 C 80 16 144/78 H 98 10/27/16 04:11 37.6 C H 84 16 142/73 H 95 Intake & Output: Intake & Output 10/24/16 10/25/16 10/26/16 10/27/16 23:59 23:59 23:59 23:59 Intake Total 1148 4367 4829 1051 Output Total 675 2320 1525 1850 Balance 473 2462 5340 -722 - Objective General Appearance: positive: No acute distress, Alert. negative: Lethargic Eyes Bilateral: positive: Normal inspection, PERRL. negative: No lid inflammation, Conjunctivae nml ENT: positive: ENT inspection nml, Pharynx nml. negative: Purulent nasal drainage, Pharyngeal erythema Neck: positive: Nml inspection, Thyroid nml, Trachea midline. negative: Lymphadenopathy (R), Lymphadenopathy (L), Stiff neck, Tracheal deviation Respiratory: positive: Chest non-tender, No respiratory distress, Breath sounds nml. negative: Wheezes, Rales, Rhonchi Cardiovascular: positive: Regular rate & rhythm, No murmur. negative: Irregularly irregular, Tachycardia, Bradycardia, Systolic murmur, Diastolic murmur Peripheral Pulses: 2+ Radial (R), 2+ Radial (L), 2+ Dorsalis pedis (R), 2+ Dorsalis pedis (L) Abdomen: positive: Non-tender, Nml bowel sounds, No distention. negative: Tenderness, Guarding, Rebound Back: positive: Nml inspection. negative: CVA tenderness (R), CVA tenderness (L ) Skin: positive: Color nml, Warm, Dry, Decubitus, Other (black color at the second left toe, and with drainage). negative: Diaphoresis Extremities: positive: Full ROM. negative: Calf tenderness, Rukhsana's sign/cords Neurologic/Psychiatric: positive: Oriented x3, Motor nml, Sensation nml, Mood/ affect nml. negative: Sensory loss, Facial droop, Slurred/abnml speech, Depressed mood/affect - Lab Results Fish Bones: 10/26/16 08:58 10/26/16 08:58 Other Labs: Lab Results x24hrs 10/27/16 10/27/16 10/26/16 Range/Units 07:36 04:40 20:24 WBC (4.8-10.8) x10^3/uL RBC (4.70-6.10) 10^6/uL Hgb (14.0-18.0) g/dL Hct (42.0-52.0) % MCV (80.0-94.0) fL MCH (27.0-31.0) pg MCHC (32.0-36.0) g/dL RDW (12.0-15.0) % Plt Count (130-450) 10^3/uL MPV (7.4-11.4) fL Neut # (1.5-6.6) 10^3/uL Lymph # (1.5-3.5) 10^3/uL [place] # (0.0-1.0) 10^3/uL Eos # (0.0-0.7) 10^3/uL Baso # (0.0-0.1) 10^3/uL Absolute Nucleated RBC x10^3/uL Nucleated RBCs /100WBC Sodium (135-145) mmol/L Potassium (3.5-5.0) mmol/L Chloride (101-111) mmol/L Carbon Dioxide (21-32) mmol/L Anion Gap (6-13) BUN (6-20) mg/dL Creatinine (0.6-1.2) mg/dL Estimated GFR (MDRD) (>89) Glucose (70-100) mg/dL POC Whole Bld Glucose 116 H 138 H (70 - 100) mg/dL Calcium (8.5-10.3) mg/dL Magnesium 1.9 (1.7-2.8) mg/dL Total Bilirubin (0.2-1.0) mg/dL AST (10-42) IU/L ALT (10-60) IU/L Alkaline Phosphatase (42-121) IU/L Total Protein (6.7-8.2) g/dL Albumin (3.2-5.5) g/dL Globulin (2.1-4.2) g/dL Albumin/Globulin Ratio (1.0-2.2) 10/26/16 10/26/16 10/26/16 Range/Units 16:24 11:18 08:58 WBC (4.8-10.8) x10^3/uL RBC (4.70-6.10) 10^6/uL Hgb (14.0-18.0) g/dL Hct (42.0-52.0) % MCV (80.0-94.0) fL MCH (27.0-31.0) pg MCHC (32.0-36.0) g/dL RDW (12.0-15.0) % Plt Count (130-450) 10^3/uL MPV (7.4-11.4) fL Neut # (1.5-6.6) 10^3/uL Lymph # (1.5-3.5) 10^3/uL [place] # (0.0-1.0) 10^3/uL Eos # (0.0-0.7) 10^3/uL Baso # (0.0-0.1) 10^3/uL Absolute Nucleated RBC x10^3/uL Nucleated RBCs /100WBC Sodium 133 L (135-145) mmol/L Potassium 3.8 (3.5-5.0) mmol/L Chloride 101 (101-111) mmol/L Carbon Dioxide 24 (21-32) mmol/L Anion Gap 8.0 (6-13) BUN 11 (6-20) mg/dL Creatinine 0.8 (0.6-1.2) mg/dL Estimated GFR (MDRD) 118 (>89) Glucose 302 H (70-100) mg/dL POC Whole Bld Glucose 243 H 259 H (70 - 100) mg/dL Calcium 8.0 L (8.5-10.3) mg/dL Magnesium (1.7-2.8) mg/dL Total Bilirubin 0.5 (0.2-1.0) mg/dL AST 39 (10-42) IU/L ALT 43 (10-60) IU/L Alkaline Phosphatase 89 (42-121) IU/L Total Protein 6.7 (6.7-8.2) g/dL Albumin 3.0 L (3.2-5.5) g/dL Globulin 3.7 (2.1-4.2) g/dL Albumin/Globulin Ratio 0.8 L (1.0-2.2) 10/26/16 Range/Units 08:58 WBC 10.3 (4.8-10.8) x10^3/uL RBC 3.92 L (4.70-6.10) 10^6/uL Hgb 11.9 L (14.0-18.0) g/dL Hct 34.9 L (42.0-52.0) % MCV 89.1 (80.0-94.0) fL MCH 30.5 (27.0-31.0) pg MCHC 34.2 (32.0-36.0) g/dL RDW 12.7 (12.0-15.0) % Plt Count 208 (130-450) 10^3/uL MPV 10.0 (7.4-11.4) fL Neut # 7.9 H (1.5-6.6) 10^3/uL Lymph # 1.0 L (1.5-3.5) 10^3/uL [place] # 1.2 H (0.0-1.0) 10^3/uL Eos # 0.1 (0.0-0.7) 10^3/uL Baso # 0.1 (0.0-0.1) 10^3/uL Absolute Nucleated RBC 0.00 x10^3/uL Nucleated RBCs 0.0 /100WBC Sodium (135-145) mmol/L Potassium (3.5-5.0) mmol/L Chloride (101-111) mmol/L Carbon Dioxide (21-32) mmol/L Anion Gap (6-13) BUN (6-20) mg/dL Creatinine (0.6-1.2) mg/dL Estimated GFR (MDRD) (>89) Glucose (70-100) mg/dL POC Whole Bld Glucose (70 - 100) mg/dL Calcium (8.5-10.3) mg/dL Magnesium (1.7-2.8) mg/dL Total Bilirubin (0.2-1.0) mg/dL AST (10-42) IU/L ALT (10-60) IU/L Alkaline Phosphatase (42-121) IU/L Total Protein (6.7-8.2) g/dL Albumin (3.2-5.5) g/dL Globulin (2.1-4.2) g/dL Albumin/Globulin Ratio (1.0-2.2) Assessment/Plan - Problem List (1) Diabetic foot ulcer Impression: MRI reveals osteomyolitis, surgeon plan pt to have surgeon today. pt was NPO last night. There is no blood culture in ER. Wound culture reveal positive for Citrobacter braakii. The research study show fourth generation cefepime and levoquin is more against active to these high resistant bacteria. switch to Cefepime and vanco Qualifiers: Diabetic foot ulcer location: toe Diabetes mellitus type: type 2 Laterality: left Non-pressure ulcer stage: unspecified non-pressure ulcer stage Qualified Code(s): E11.621 - Type 2 diabetes mellitus with foot ulcer; L97.529 - Non-pressure chronic ulcer of other part of left foot with unspecified severity (2) Diabetes mellitus with hyperglycemia Impression: since add Lantus on night is good control of glucose, will ask pharmacy to confirm the dosage insulin pt took at home. Since pt did not take insulin for four months, did not remember. 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
[2016-10-27] MEDS ORDERED: MIDAZOLAM 2 MG/2 ML VIAL IVP ONE (09:00)
[2016-10-27] MEDS ORDERED: PROPOFOL 200 MG/20 ML VIAL IVP ONE (09:00)
[2016-10-27] MEDS ORDERED: ePHEDrine 50 MG/ML VIAL IVP ONE (09:00)
[2016-10-27] MEDS ORDERED: ACETAMINOPHEN 1,000 MG/100 ML VIAL IV ONE (09:00)
[2016-10-27] MEDS ORDERED: ONDANSETRON 4 MG/2 ML VIAL IVP ONE (09:00)
[2016-10-27] MEDS ORDERED: DEXAMETHASONE 4 MG/ML VIAL IVP ONE (09:00)
[2016-10-27] MEDS ORDERED: LIDOCAINE-MPF 2% 5 ML VIAL IM ONE (09:00)
[2016-10-27] MEDS ORDERED: fentaNYL 100 MCG/2 ML VIAL IVP ONE (09:00)
[2016-10-27 09:03] LABS: BASOPHILS # (AUTO) 0.1 10^3/uL (0.0-0.1); BASOPHILS % (AUTO) 0.9 %; EOSINOPHILS # (AUTO) 0.2 10^3/uL (0.0-0.7); EOSINOPHILS % (AUTO) 1.7 %; HCT - HEMATOCRIT 35.4 % (42.0-52.0); HGB - HEMOGLOBIN 12.3 g/dL (14.0-18.0); LYMPHOCYTES # (AUTO) 1.1 10^3/uL (1.5-3.5); LYMPHOCYTES % (AUTO) 11.1 %; MEAN CORPUSCULAR HEMOGLOBIN 30.4 pg (27.0-31.0); MEAN CORPUSCULAR HGB CONC 34.6 g/dL (32.0-36.0); MEAN CORPUSCULAR VOLUME 87.8 fL (80.0-94.0); MEAN PLATELET VOLUME 9.1 fL (7.4-11.4); MONOCYTES # (AUTO) 1.3 10^3/uL (0.0-1.0); MONOCYTES % (AUTO) 12.4 %; NEUTROPHILS # (AUTO) 7.6 10^3/uL (1.5-6.6); NEUTROPHILS % (AUTO) 73.9 %; NUCLEATED RED BLOOD CELLS AUTO 0.1 /100WBC; RED BLOOD COUNT 4.03 10^6/uL (4.70-6.10); RED CELL DISTRIBUTION WIDTH 12.6 % (12.0-15.0); UNCORRECTED WHITE BLOOD COUNT 10.3 x10^3/uL; WHITE BLOOD COUNT 10.3 x10^3/uL (4.8-10.8)
[2016-10-27 09:21] LABS: ALBUMIN/GLOBULIN RATIO 0.7 (1.0-2.2); BILIRUBIN,TOTAL 0.7 mg/dL (0.2-1.0); CALCIUM 8.8 mg/dL (8.5-10.3); TOTAL PROTEIN 7.3 g/dL (6.7-8.2)
[2016-10-27] MEDS ORDERED: SILVER SULFADIAZINE CREAM 25 GM TUBE TOP ONE (09:47)
[2016-10-27] MEDS ORDERED: CEFEPIME 1 GM in SODIUM CHLORIDE 0.9% MINIBAG 100 ML IV SCH (10:00)
[2016-10-27] MEDS ORDERED: LACTATED RINGERS 1,000 ML IV ONE (10:07)
--- NOTE | 2016-10-27 10:11 | OPERATIVE REPORT ---
Operative Report - General Admit Date: 10/24/16 Procedure Date: 10/27/16 Planned Procedure: Amputation of Left 2nd toe at the MTP level Pre-Op Diagnosis: Gangrene, Left second toe Procedure Performed: Amputation of Left 2nd toe at the MTP level. Post Op Diagnosis: Same - Procedure Note Primary Surgeon: Neal Manzanares MD Anesthesia Provider: He Stover CRNA Anesthesia Technique: General ET tube Pathology: Left second toe sent to pathology for cultures and gram stain. IV Fluids (mL): 1,000 Estimated Blood Loss (mL): 0 Complications: None. - Other Other Information/Narrative: Condition: Stable Dressing: Silvadene, gauze, Annie wrap. Disposition: PACU >> [facility]
[2016-10-27] MEDS: SODIUM CHLORIDE FLUSH 0.9% 10 ML SYRINGE IVP PRN (11:15)
[2016-10-27] MEDS: CEFEPIME 1 GM in SODIUM CHLORIDE 0.9% MINIBAG 100 ML IV SCH (19:01)
[2016-10-27] MEDS: INSULIN GLARGINE 300 UNIT/3 ML PEN SUBQ SCH (21:03)
[2016-10-28] MEDS: CEFEPIME 1 GM in SODIUM CHLORIDE 0.9% MINIBAG 100 ML IV SCH ×3 (03:14→19:47)
[2016-10-28] MEDS ORDERED: BENZOCAINE/MENTHOL LOZENGE MM PRN (03:17)
[2016-10-28] MEDS: SODIUM CHLORIDE FLUSH 0.9% 10 ML SYRINGE IVP SCH ×3 (05:52→21:07)
[2016-10-28] MEDS: SODIUM CHLORIDE 0.9% 1,000 ML IV SCH ×3 (06:36→16:44)
[2016-10-28] MEDS: VANCOMYCIN 1.25 GM/NS 250 ML 250 ML IV SCH ×2 (06:50→19:47)
--- NOTE | 2016-10-28 07:16 | PROVIDER PROGRESS NOTE ---
Assessment/Plan - Problem List (1) Status post amputation of toe of left foot Assessment/Plan: improving. continue with wound care and treatment with IV antibiotics. will transition to oral tomorrow. continue to encourage ambulation and PT assist and evaluation. (2) GERD (gastroesophageal reflux disease) Qualifiers: Esophagitis presence: without esophagitis Qualified Code(s): K21.9 - Gastro -esophageal reflux disease without esophagitis Assessment/Plan: chronic. continue on PPI home dosage. (3) Medical non-compliance Assessment/Plan: encouragement to continue to check blood glucose daily. counseled on blood glucose elevations due to infections. will enforce with nursing support regarding diabetic compliance. 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 patient is noncompliant with medications for diabetes. He now has an amputation of the 2nd left toe and will need PT with assist to ambulate. he has been counseled on medication compliance and management of blood glucose levels after surgery. increased lantus to BID 5 units daily - Current Meds Current Meds: Current Medications Generic Name Dose Route Start Last Admin Trade Name Freq PRN Reason Stop Dose Admin Acetaminophen 650 mg 10/24/16 18:16 10/26/16 20:45 Tylenol PO 650 mg Q4HR PRN Administration Pain 1 to 4 Acetaminophen/Hydrocodone Bitart 1 tab 10/24/16 18:16 10/27/16 06:31 [place] 5/325 PO 1 tab Q4HR PRN Administration Pain 5 to 7 Enoxaparin Sodium 40 mg 10/25/16 09:00 10/27/16 08:39 Lovenox SUBQ Not Given DAILY [facility] Famotidine 20 mg 10/25/16 09:00 10/27/16 08:39 Pepcid PO Not Given DAILY [facility] Sodium Chloride 1,000 mls @ 125 mls/hr 10/24/16 19:00 10/28/16 06:36 Normal Saline 0.9% IV 125 mls/hr .Q8H [facility] Administration Vancomycin/Sodium Chloride 250 mls @ 160 mls/hr 10/26/16 19:00 10/28/16 06:50 Vanco/Sod Chloride 0.9% IV 160 mls/hr Q12H [facility] Administration Cefepime HCl 1 gm/ Sodium 100 mls @ 200 mls/hr 10/27/16 19:00 10/28/16 03:14 Chloride IV 200 mls/hr Q8H [facility] Administration Insulin Aspart 3 - 11 unit 10/25/16 12:00 10/27/16 21:02 Novolog SUBQ 9 unit 0800,1200,1700,2100 [facility] Administration Protocol Insulin Glargine 5 unit 10/26/16 21:00 10/27/16 21:03 Lantus Solostar SUBQ 5 unit QPM [facility] Administration Metoprolol Tartrate 25 mg 10/26/16 09:00 10/27/16 08:39 Lopressor PO 25 mg DAILY [facility] Administration Polyethylene Glycol 17 gm 10/25/16 09:00 10/27/16 08:40 Miralax PO Not Given DAILY [facility] Sodium Chloride 10 ml 10/24/16 18:16 10/27/16 11:15 Normal Saline Flush 0.9% IVP 10 ml PRN PRN Administration NEEDED PER PROVIDER ORDERS Sodium Chloride 10 ml 10/24/16 22:00 10/28/16 05:52 Normal Saline Flush 0.9% IVP Not Given Q8HR [facility] Throat Lozenges 1 lozenge 10/28/16 03:17 10/28/16 03:23 Cepacol MM 1 lozenge Q2HR PRN Administration Throat pain - Lab Result Lab results reviewed: Yes Fish Bone Diagrams: 10/28/16 09:05 10/28/16 09:05 Other Lab Results: Abnormal Lab Results 10/26/16 10/26/16 10/26/16 07:25 08:58 08:58 RBC 3.92 10^6/uL L 10^6/uL (4.70-6.10) Hgb 11.9 g/dL L g/dL (14.0-18.0) Hct 34.9 % L % (42.0-52.0) Neut # 7.9 10^3/uL H 10^3/uL (1.5-6.6) Lymph # 1.0 10^3/uL L 10^3/uL (1.5-3.5) [place] # 1.2 10^3/uL H 10^3/uL (0.0-1.0) Sodium 133 mmol/L L mmol/L (135-145) Glucose 302 mg/dL H mg/dL (70-100) POC Whole Bld Glucose 207 mg/dL H mg/dL (70 - 100) Calcium 8.0 mg/dL L mg/dL (8.5-10.3) AST ALT Albumin 3.0 g/dL L g/dL (3.2-5.5) Albumin/Globulin Ratio 0.8 L (1.0-2.2) 10/26/16 10/26/16 10/26/16 11:18 16:24 20:24 RBC Hgb Hct Neut # Lymph # [place] # Sodium Glucose POC Whole Bld Glucose 259 mg/dL H mg/dL 243 mg/dL H mg/dL 138 mg/dL H mg/dL (70 - 100) (70 - 100) (70 - 100) Calcium AST ALT Albumin Albumin/Globulin Ratio 10/27/16 10/27/16 10/27/16 07:36 08:57 08:57 RBC 4.03 10^6/uL L 10^6/uL (4.70-6.10) Hgb 12.3 g/dL L g/dL (14.0-18.0) Hct 35.4 % L % (42.0-52.0) Neut # 7.6 10^3/uL H 10^3/uL (1.5-6.6) Lymph # 1.1 10^3/uL L 10^3/uL (1.5-3.5) [place] # 1.3 10^3/uL H 10^3/uL (0.0-1.0) Sodium Glucose 128 mg/dL H mg/dL (70-100) POC Whole Bld Glucose 116 mg/dL H mg/dL (70 - 100) Calcium AST 46 IU/L H IU/L (10-42) ALT 63 IU/L H IU/L (10-60) Albumin 3.1 g/dL L g/dL (3.2-5.5) Albumin/Globulin Ratio 0.7 L (1.0-2.2) 10/27/16 10/27/16 10/27/16 10:39 11:32 16:45 RBC Hgb Hct Neut # Lymph # [place] # Sodium Glucose POC Whole Bld Glucose 139 mg/dL H mg/dL 130 mg/dL H mg/dL 326 mg/dL H mg/dL (70 - 100) (70 - 100) (70 - 100) Calcium AST ALT Albumin Albumin/Globulin Ratio 10/27/16 10/27/16 17:07 20:40 RBC Hgb Hct Neut # Lymph # [place] # Sodium Glucose POC Whole Bld Glucose 302 mg/dL H mg/dL 323 mg/dL H mg/dL (70 - 100) (70 - 100) Calcium AST ALT Albumin Albumin/Globulin Ratio - EKG Results EKG Interpreted Independently: No - Diagnostic Imaging Results Diagnostic Imaging Results: See rad report - Additional Planning Condition/Complexity: Stable Consult/Specialty: OT, PT, Surgery Plan Discussed with:: Patient, Family, Case Management (Patient will need at least another 24-48 hours inpatient with PT and diabetic counseling. He will need IV medications for amputation.) Time Spent: 31-60 minutes Subjective - Subjective Patient Reports: Resting Comfortably, No Complaints, Pain, Other (pain to left foot when up but no other issues. no chest pain, shortness of breath.) Nursing Reports: No Complaints Objective Vital Signs: Vital Signs - 24 hr 10/27/16 10/27/16 10/27/16 07:44 08:39 10:04 Temperature 37.4 C Heart Rate [ 80 Brachial] Respiratory 16 Rate Blood Pressure 144/78 H Blood Pressure [Left Brachial artery] Blood Pressure 144/78 H [Right Brachial artery] O2 Saturation 98 100 10/27/16 10/27/16 10/27/16 10:09 10:14 10:19 Temperature Heart Rate [ Brachial] Respiratory Rate Blood Pressure Blood Pressure [Left Brachial artery] Blood Pressure [Right Brachial artery] O2 Saturation 98 100 98 10/27/16 10/27/16 10/27/16 10:24 10:51 11:21 Temperature 36.9 C Heart Rate [ 71 65 Brachial] Respiratory 16 17 Rate Blood Pressure Blood Pressure [Left Brachial artery] Blood Pressure 146/84 H 154/75 H [Right Brachial artery] O2 Saturation 99 97 99 10/27/16 10/27/16 10/27/16 12:21 13:21 15:26 Temperature 36.7 C 37.4 C 37.1 C Heart Rate [ 74 79 83 Brachial] Respiratory 18 16 18 Rate Blood Pressure Blood Pressure [Left Brachial artery] Blood Pressure 142/83 H 171/90 H 171/80 H [Right Brachial artery] O2 Saturation 100 100 99 10/27/16 10/28/16 16:11 00:03 Temperature 37.1 C Heart Rate [ 84 81 Brachial] Respiratory 18 Rate Blood Pressure Blood Pressure 134/63 H [Left Brachial artery] Blood Pressure 156/82 H [Right Brachial artery] O2 Saturation 98 Oxygen O2 Source Room air I&O (Last 24 Hrs): Intake and Output Totals x24h 10/26/16 10/27/16 10/28/16 23:59 23:59 23:59 Intake Total 4829 4651 1337 Output Total 1525 5000 2200 Balance 3514 -382 -993 General: Alert, Oriented x3, Cooperative, No acute distress HEENT: Atraumatic, PERRLA, Mucous membr. moist/pink Neck: Supple, No JVD Lymphatic: no adenopathy Neuro: Alert, Non Focal, CN 2-12 Grossly Intact, Oriented Times 3 Cardiovascular: Regular rate, Normal S1, Normal S2 Respiratory: Chest non-tender, No respiratory distress, Breath sounds nml Abdomen: Normal bowel sounds, Soft, No tenderness, No hepatospenomegaly Genitourinary: No Mass, No Discharge Rectal: Stool - Heme NEG Extremities: No clubbing, No cyanosis, Normal pulses, Other (left foot with clean dry dressing with scant dried blood to left 2nd toe) Skin: No rashes, No breakdown, No significant lesion - Results Results: Laboratory Results WBC 10.3 x10^3/uL (4.8-10.8) 10/27/16 08:57 RBC 4.03 10^6/uL (4.70-6.10) L 10/27/16 08:57 Hgb 12.3 g/dL (14.0-18.0) L 10/27/16 08:57 Hct 35.4 % (42.0-52.0) L 10/27/16 08:57 MCV 87.8 fL (80.0-94.0) 10/27/16 08:57 MCH 30.4 pg (27.0-31.0) 10/27/16 08:57 MCHC 34.6 g/dL (32.0-36.0) 10/27/16 08:57 RDW 12.6 % (12.0-15.0) 10/27/16 08:57 Plt Count 247 10^3/uL (130-450) 10/27/16 08:57 MPV 9.1 fL (7.4-11.4) 10/27/16 08:57 Neut # 7.6 10^3/uL (1.5-6.6) H 10/27/16 08:57 Lymph # 1.1 10^3/uL (1.5-3.5) L 10/27/16 08:57 [place] # 1.3 10^3/uL (0.0-1.0) H 10/27/16 08:57 Eos # 0.2 10^3/uL (0.0-0.7) 10/27/16 08:57 Baso # 0.1 10^3/uL (0.0-0.1) 10/27/16 08:57 Absolute Nucleated RBC 0.01 x10^3/uL 10/27/16 08:57 Total Counted 100 10/25/16 06:00 Band Neuts % (Manual) 2 % (0-10) 10/25/16 06:00 Neutrophils # (Manual) 11.1 10^3/uL (1.5-6.6) H 10/25/16 06:00 Lymphocytes # (Manual) 1.5 10^3/uL (1.5-3.5) 10/25/16 06:00 Monocytes # (Manual) 1.3 10^3/uL (0.0-1.0) H 10/25/16 06:00 Nucleated RBCs 0.1 /100WBC 10/27/16 08:57 Differential Comment MANUAL DIFFERENTIAL 10/25/16 06:00 Platelet Estimate NORMAL (130-450,000) (NORMAL) 10/25/16 06:00 RBC Morph Micro Appear NORMAL APPEARANCE (NORMAL) 10/25/16 06:00 Sodium 137 mmol/L (135-145) 10/27/16 08:57 Potassium 4.0 mmol/L (3.5-5.0) 10/27/16 08:57 Chloride 101 mmol/L (101-111) 10/27/16 08:57 Carbon Dioxide 27 mmol/L (21-32) 10/27/16 08:57 Anion Gap 9.0 (6-13) 10/27/16 08:57 BUN 10 mg/dL (6-20) 10/27/16 08:57 Creatinine 1.0 mg/dL (0.6-1.2) 10/27/16 08:57 Estimated GFR (MDRD) 91 (>89) 10/27/16 08:57 Glucose 128 mg/dL (70-100) H 10/27/16 08:57 POC Whole Bld Glucose 323 mg/dL (70 - 100) H 10/27/16 20:40 Glycated Hemoglobin 12.0 % (4.6-6.2) H 10/24/16 15:36 Estim Average Glucose 298 (70-100) H 10/24/16 15:36 Lactic Acid 1.0 mmol/L (0.5-2.2) 10/24/16 15:36 Calcium 8.8 mg/dL (8.5-10.3) 10/27/16 08:57 Magnesium 1.9 mg/dL (1.7-2.8) 10/27/16 04:40 Total Bilirubin 0.7 mg/dL (0.2-1.0) 10/27/16 08:57 AST 46 IU/L (10-42) H 10/27/16 08:57 ALT 63 IU/L (10-60) H 10/27/16 08:57 Alkaline Phosphatase 110 IU/L (42-121) 10/27/16 08:57 Total Protein 7.3 g/dL (6.7-8.2) 10/27/16 08:57 Albumin 3.1 g/dL (3.2-5.5) L 10/27/16 08:57 Globulin 4.2 g/dL (2.1-4.2) 10/27/16 08:57 Albumin/Globulin Ratio 0.7 (1.0-2.2) L 10/27/16 08:57 Lipase 18 U/L (22-51) L 10/24/16 15:36 Urine Color YELLOW 10/24/16 22:34 Urine Clarity CLEAR (CLEAR) 10/24/16 22:34 Urine pH 5.0 PH (5.0-7.5) 10/24/16 22:34 Ur Specific [place] 1.015 (1.002-1.030) 10/24/16 22:34 Urine Protein TRACE mg/dL (NEGATIVE) 10/24/16 22:34 Urine Glucose (UA) >=1000 mg/dL (NEGATIVE) H 10/24/16 22:34 Urine Ketones NEGATIVE mg/dL (NEGATIVE) 10/24/16 22:34 Urine Occult Blood TRACE-INTA (NEGATIVE) 10/24/16 22:34 Urine Nitrite NEGATIVE (NEGATIVE) 10/24/16 22:34 Urine Bilirubin NEGATIVE (NEGATIVE) 10/24/16 22:34 Urine Urobilinogen 0.2 (NORMAL) E.U./dL (NORMAL) 10/24/16 22:34 Ur Leukocyte Esterase NEGATIVE (NEGATIVE) 10/24/16 22:34 Ur Microscopic Review NOT INDICATED 10/24/16 22:34 Urine Culture Comments NOT INDICATED 10/24/16 22:34 Last Dose Date 10/27/16 10/28/16 06:25 Last Dose Time 200310/28/16 06:25 Vancomycin Trough 13.9 ug/mL (5.0-15.0) 10/28/16 06:25 Urine Opiates Screen NEGATIVE (NEGATIVE) 10/24/16 22:34 Ur Oxycodone Screen NEGATIVE (NEGATIVE) 10/24/16 22:34 Urine Methadone Screen NEGATIVE (NEGATIVE) 10/24/16 22:34 Ur Propoxyphene Screen NEGATIVE (NEGATIVE) 10/24/16 22:34 Ur Barbiturates Screen NEGATIVE (NEGATIVE) 10/24/16 22:34 Ur Tricyclics Screen NEGATIVE (NEGATIVE) 10/24/16 22:34 Ur Phencyclidine Scrn NEGATIVE (NEGATIVE) 10/24/16 22:34 Ur Amphetamine Screen NEGATIVE (NEGATIVE) 10/24/16 22:34 U Methamphetamines Scrn NEGATIVE (NEGATIVE) 10/24/16 22:34 U Benzodiazepines Scrn NEGATIVE (NEGATIVE) 10/24/16 22:34 Urine Cocaine Screen NEGATIVE (NEGATIVE) 10/24/16 22:34 U Cannabinoids Screen NEGATIVE (NEGATIVE) 10/24/16 22:34 Serum Ketones NEGATIVE (NEGATIVE) 10/24/16 15:36 - Procedures Procedures: Procedures CATARAC PHACOEMULS/ASPIR (12/29/13) INSERT LENS AT CATAR EXT (12/29/13)
[2016-10-28 09:11] LABS: BASOPHILS # (AUTO) 0.1 10^3/uL (0.0-0.1); EOSINOPHILS # (AUTO) 0.3 10^3/uL (0.0-0.7); EOSINOPHILS % (AUTO) 2.4 %; HCT - HEMATOCRIT 32.7 % (42.0-52.0); HGB - HEMOGLOBIN 11.2 g/dL (14.0-18.0); LYMPHOCYTES # (AUTO) 1.7 10^3/uL (1.5-3.5); LYMPHOCYTES % (AUTO) 16.1 %; MEAN CORPUSCULAR HEMOGLOBIN 30.2 pg (27.0-31.0); MEAN CORPUSCULAR HGB CONC 34.3 g/dL (32.0-36.0); MEAN CORPUSCULAR VOLUME 88.1 fL (80.0-94.0); MEAN PLATELET VOLUME 8.9 fL (7.4-11.4); MONOCYTES # (AUTO) 1.2 10^3/uL (0.0-1.0); NEUTROPHILS # (AUTO) 7.4 10^3/uL (1.5-6.6); NEUTROPHILS % (AUTO) 69.5 %; RED BLOOD COUNT 3.71 10^6/uL (4.70-6.10); RED CELL DISTRIBUTION WIDTH 12.7 % (12.0-15.0); UNCORRECTED WHITE BLOOD COUNT 10.7 x10^3/uL; WHITE BLOOD COUNT 10.7 x10^3/uL (4.8-10.8)
[2016-10-28] MEDS: INSULIN ASPART 300 UNIT/3 ML PEN SUBQ SCH ×4 (09:17→21:07)
[2016-10-28] MEDS: ENOXAPARIN 40 MG/0.4 ML SYRINGE SUBQ SCH (09:18)
[2016-10-28] MEDS: FAMOTIDINE 20 MG TABLET PO SCH (09:19)
[2016-10-28] MEDS: METOPROLOL TARTRATE 25 MG TABLET PO SCH (09:19)
[2016-10-28] MEDS: POLYETHYLENE GLYCOL 3350 17 GM PACKET PO SCH (09:19)
[2016-10-28 09:29] LABS: ALBUMIN/GLOBULIN RATIO 0.7 (1.0-2.2); BILIRUBIN,TOTAL 0.5 mg/dL (0.2-1.0); CALCIUM 8.5 mg/dL (8.5-10.3); POTASSIUM 3.8 mmol/L (3.5-5.0)
[2016-10-28] MEDS ORDERED: INSULIN GLARGINE 300 UNIT/3 ML PEN SUBQ SCH (11:00)
[2016-10-28] MEDS: INSULIN GLARGINE 300 UNIT/3 ML PEN SUBQ SCH ×2 (21:06→21:07)
[2016-10-29] MEDS: SODIUM CHLORIDE 0.9% 1,000 ML IV SCH (02:22)
[2016-10-29] MEDS: CEFEPIME 1 GM in SODIUM CHLORIDE 0.9% MINIBAG 100 ML IV SCH ×3 (02:22→18:53)
[2016-10-29] MEDS: SODIUM CHLORIDE FLUSH 0.9% 10 ML SYRINGE IVP SCH ×3 (05:23→20:54)
[2016-10-29] MEDS: VANCOMYCIN 1.25 GM/NS 250 ML 250 ML IV SCH (06:34)
--- NOTE | 2016-10-29 07:36 | PROVIDER PROGRESS NOTE ---
Assessment/Plan - Problem List (1) Citrobacter infection Assessment/Plan: ongoing but improving. amputation of left foot 2nd toe with diabetic ulceration with citrobacter braakii susceptible to cefepime. patient started on oral bactrim and will transition cefepime to oral tomorrow. (2) Status post amputation of toe of left foot Assessment/Plan: improving. continue with PT and encourage ambulations as tolerated. will need wound care by MAC. continued support with ortho Dr Manzanares. continue with antibiotics and transition to oral (3) GERD (gastroesophageal reflux disease) Qualifiers: Esophagitis presence: without esophagitis Qualified Code(s): K21.9 - Gastro -esophageal reflux disease without esophagitis Assessment/Plan: chronic. continue with PPI. (4) Medical non-compliance Assessment/Plan: improving. patient was given counseling regarding medication compliance by nursing and nutrition. 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 with amputation of left foot 2nd toe. patient has been given diabetic counseling. He is on sliding scale insulin and diabetic diet. Hemoglobin A1C is 12 and encouraged compliance by nursing to reduce number - Current Meds Current Meds: Current Medications Generic Name Dose Route Start Last Admin Trade Name Freq PRN Reason Stop Dose Admin Acetaminophen 650 mg 10/24/16 18:16 10/26/16 20:45 Tylenol PO 650 mg Q4HR PRN Administration Pain 1 to 4 Acetaminophen/Hydrocodone Bitart 1 tab 10/24/16 18:16 10/27/16 06:31 [place] 5/325 PO 1 tab Q4HR PRN Administration Pain 5 to 7 Enoxaparin Sodium 40 mg 10/25/16 09:00 10/28/16 09:18 Lovenox SUBQ 40 mg DAILY PAUL Administration Famotidine 20 mg 10/25/16 09:00 10/28/16 09:19 Pepcid PO 20 mg DAILY PAUL Administration Sodium Chloride 1,000 mls @ 125 mls/hr 10/24/16 19:00 10/29/16 02:22 Normal Saline 0.9% IV 125 mls/hr .Q8H PAUL Administration Vancomycin/Sodium Chloride 250 mls @ 160 mls/hr 10/26/16 19:00 10/29/16 06:34 Vanco/Sod Chloride 0.9% IV 160 mls/hr Q12H PAUL Administration Cefepime HCl 1 gm/ Sodium 100 mls @ 200 mls/hr 10/27/16 19:00 10/29/16 02:22 Chloride IV 200 mls/hr Q8H PAUL Administration Insulin Aspart 3 - 11 unit 10/25/16 12:00 10/28/16 21:07 Novolog SUBQ 9 unit 0800,1200,1700,2100 PAUL Administration Protocol Insulin Glargine 5 unit 10/28/16 21:00 10/28/16 21:07 Lantus Solostar SUBQ 5 unit BID PAUL Administration Metoprolol Tartrate 25 mg 10/26/16 09:00 10/28/16 09:19 Lopressor PO 25 mg DAILY PAUL Administration Polyethylene Glycol 17 gm 10/25/16 09:00 10/28/16 09:19 Miralax PO 17 gm DAILY PAUL Administration Sodium Chloride 10 ml 10/24/16 18:16 10/27/16 11:15 Normal Saline Flush 0.9% IVP 10 ml PRN PRN Administration NEEDED PER PROVIDER ORDERS Sodium Chloride 10 ml 10/24/16 22:00 10/29/16 05:23 Normal Saline Flush 0.9% IVP Not Given Q8HR [facility] Throat Lozenges 1 lozenge 10/28/16 03:17 10/28/16 03:23 Cepacol MM 1 lozenge Q2HR PRN Administration Throat pain - Lab Result Lab results reviewed: Yes Fish Bone Diagrams: 10/29/16 08:34 10/29/16 08:34 Other Lab Results: Abnormal Lab Results 10/27/16 10/27/16 10/27/16 16:45 17:07 20:40 RBC Hgb Hct Neut # Lymph # Addison # Sodium Chloride Glucose POC Whole Bld Glucose 326 mg/dL H mg/dL 302 mg/dL H mg/dL 323 mg/dL H mg/dL (70 - 100) (70 - 100) (70 - 100) Albumin Globulin Albumin/Globulin Ratio 10/28/16 10/28/16 10/28/16 07:14 09:05 09:05 RBC 3.71 10^6/uL L 10^6/uL (4.70-6.10) Hgb 11.2 g/dL L g/dL (14.0-18.0) Hct 32.7 % L % (42.0-52.0) Neut # 7.4 10^3/uL H 10^3/uL (1.5-6.6) Lymph # Addison # 1.2 10^3/uL H 10^3/uL (0.0-1.0) Sodium 134 mmol/L L mmol/L (135-145) Chloride 99 mmol/L L mmol/L (101-111) Glucose 283 mg/dL H mg/dL (70-100) POC Whole Bld Glucose 217 mg/dL H mg/dL (70 - 100) Albumin 2.8 g/dL L g/dL (3.2-5.5) Globulin Albumin/Globulin Ratio 0.7 L (1.0-2.2) 10/28/16 10/28/16 10/28/16 11:29 16:19 20:26 RBC Hgb Hct Neut # Lymph # Addison # Sodium Chloride Glucose POC Whole Bld Glucose 255 mg/dL H mg/dL 230 mg/dL H mg/dL 287 mg/dL H mg/dL (70 - 100) (70 - 100) (70 - 100) Albumin Globulin Albumin/Globulin Ratio 10/29/16 10/29/16 10/29/16 07:26 08:34 08:34 RBC 4.04 10^6/uL L 10^6/uL (4.70-6.10) Hgb 12.3 g/dL L g/dL (14.0-18.0) Hct 35.4 % L % (42.0-52.0) Neut # Lymph # 1.2 10^3/uL L 10^3/uL (1.5-3.5) Addison # Sodium Chloride 98 mmol/L L mmol/L (101-111) Glucose 256 mg/dL H mg/dL (70-100) POC Whole Bld Glucose 155 mg/dL H mg/dL (70 - 100) Albumin 3.0 g/dL L g/dL (3.2-5.5) Globulin 4.5 g/dL H g/dL (2.1-4.2) Albumin/Globulin Ratio 0.7 L (1.0-2.2) 10/29/16 11:00 RBC Hgb Hct Neut # Lymph # Addison # Sodium Chloride Glucose POC Whole Bld Glucose 277 mg/dL H mg/dL (70 - 100) Albumin Globulin Albumin/Globulin Ratio - EKG Results EKG Interpreted Independently: No - Additional Planning Condition/Complexity: Improved My Orders: My Active Orders 10/28/16 09:26 Evaluate and Treat PT [PT] Routine 10/28/16 21:00 Insulin Glargine [Lantus Solostar] 5 unit SUBQ BID Consult/Specialty: OT, PT, Surgery Plan Discussed with:: Patient Time Spent: 31-60 minutes Additional Planning Notes: Patient has improved and is up and ambulating with assist. He will need a wheeled walker to go home. Plan to discharge tomorrow if patient remains stable and discharged from surgery/ortho Subjective - Subjective Patient Reports: Feeling Better, Resting Comfortably, No Complaints Nursing Reports: No Complaints (patient is up and walking with assist from nursing and PT) Objective Vital Signs: Vital Signs - 24 hr 10/28/16 10/28/16 10/28/16 09:19 15:41 20:29 Temperature 37.1 C 37.2 C Heart Rate [ 69 74 Brachial] Respiratory 16 16 Rate Blood Pressure 146/77 H Blood Pressure 151/77 H [Left Brachial artery] Blood Pressure 135/78 H [Right Brachial artery] O2 Saturation 99 99 10/29/16 00:00 Temperature 37.2 C Heart Rate [ 77 Brachial] Respiratory 18 Rate Blood Pressure Blood Pressure 160/80 H [Left Brachial artery] Blood Pressure [Right Brachial artery] O2 Saturation 97 Oxygen O2 Source Room air I&O (Last 24 Hrs): Intake and Output Totals x24h 10/27/16 10/28/16 10/29/16 23:59 23:59 23:59 Intake Total 4651 0308 1374 Output Total 8315 8685 2100 Balance -349 -431 -096 General: Alert, Oriented x3, Cooperative HEENT: Atraumatic, PERRLA, EOMI Neck: Supple, No JVD, No thyromegaly Lymphatic: no adenopathy Neuro: Alert, Non Focal, CN 2-12 Grossly Intact Cardiovascular: Regular rate, Normal S1, Normal S2 Respiratory: Chest non-tender, No respiratory distress, Breath sounds nml Abdomen: Normal bowel sounds, Soft, No tenderness, No masses Extremities: No clubbing, No cyanosis, No edema, Normal pulses, Other (left foot with kerlex and alesha wrap with scant dry drainage to bandage from amputation of 2nd toe) Skin: No rashes, No breakdown, No significant lesion - Results Results: Laboratory Results WBC 10.7 x10^3/uL (4.8-10.8) 10/28/16 09:05 RBC 3.71 10^6/uL (4.70-6.10) L 10/28/16 09:05 Hgb 11.2 g/dL (14.0-18.0) L 10/28/16 09:05 Hct 32.7 % (42.0-52.0) L 10/28/16 09:05 MCV 88.1 fL (80.0-94.0) 10/28/16 09:05 MCH 30.2 pg (27.0-31.0) 10/28/16 09:05 MCHC 34.3 g/dL (32.0-36.0) 10/28/16 09:05 RDW 12.7 % (12.0-15.0) 10/28/16 09:05 Plt Count 279 10^3/uL (130-450) 10/28/16 09:05 MPV 8.9 fL (7.4-11.4) 10/28/16 09:05 Neut # 7.4 10^3/uL (1.5-6.6) H 10/28/16 09:05 Lymph # 1.7 10^3/uL (1.5-3.5) 10/28/16 09:05 Addison # 1.2 10^3/uL (0.0-1.0) H 10/28/16 09:05 Eos # 0.3 10^3/uL (0.0-0.7) 10/28/16 09:05 Baso # 0.1 10^3/uL (0.0-0.1) 10/28/16 09:05 Absolute Nucleated RBC 0.00 x10^3/uL 10/28/16 09:05 Total Counted 100 10/25/16 06:00 Band Neuts % (Manual) 2 % (0-10) 10/25/16 06:00 Neutrophils # (Manual) 11.1 10^3/uL (1.5-6.6) H 10/25/16 06:00 Lymphocytes # (Manual) 1.5 10^3/uL (1.5-3.5) 10/25/16 06:00 Monocytes # (Manual) 1.3 10^3/uL (0.0-1.0) H 10/25/16 06:00 Nucleated RBCs 0.0 /100WBC 10/28/16 09:05 Differential Comment MANUAL DIFFERENTIAL 10/25/16 06:00 Platelet Estimate NORMAL (130-450,000) (NORMAL) 10/25/16 06:00 RBC Morph Micro Appear NORMAL APPEARANCE (NORMAL) 10/25/16 06:00 Sodium 134 mmol/L (135-145) L 10/28/16 09:05 Potassium 3.8 mmol/L (3.5-5.0) 10/28/16 09:05 Chloride 99 mmol/L (101-111) L 10/28/16 09:05 Carbon Dioxide 27 mmol/L (21-32) 10/28/16 09:05 Anion Gap 8.0 (6-13) 10/28/16 09:05 BUN 12 mg/dL (6-20) 10/28/16 09:05 Creatinine 1.0 mg/dL (0.6-1.2) 10/28/16 09:05 Estimated GFR (MDRD) 91 (>89) 10/28/16 09:05 Glucose 283 mg/dL (70-100) H 10/28/16 09:05 POC Whole Bld Glucose 155 mg/dL (70 - 100) H 10/29/16 07:26 Glycated Hemoglobin 12.0 % (4.6-6.2) H 10/24/16 15:36 Estim Average Glucose 298 (70-100) H 10/24/16 15:36 Lactic Acid 1.0 mmol/L (0.5-2.2) 10/24/16 15:36 Calcium 8.5 mg/dL (8.5-10.3) 10/28/16 09:05 Magnesium 1.9 mg/dL (1.7-2.8) 10/27/16 04:40 Total Bilirubin 0.5 mg/dL (0.2-1.0) 10/28/16 09:05 AST 29 IU/L (10-42) 10/28/16 09:05 ALT 51 IU/L (10-60) 10/28/16 09:05 Alkaline Phosphatase 92 IU/L (42-121) 10/28/16 09:05 Total Protein 7.0 g/dL (6.7-8.2) 10/28/16 09:05 Albumin 2.8 g/dL (3.2-5.5) L 10/28/16 09:05 Globulin 4.2 g/dL (2.1-4.2) 10/28/16 09:05 Albumin/Globulin Ratio 0.7 (1.0-2.2) L 10/28/16 09:05 Lipase 18 U/L (22-51) L 10/24/16 15:36 Urine Color YELLOW 10/24/16 22:34 Urine Clarity CLEAR (CLEAR) 10/24/16 22:34 Urine pH 5.0 PH (5.0-7.5) 10/24/16 22:34 Ur Specific [place] 1.015 (1.002-1.030) 10/24/16 22:34 Urine Protein TRACE mg/dL (NEGATIVE) 10/24/16 22:34 Urine Glucose (UA) >=1000 mg/dL (NEGATIVE) H 10/24/16 22:34 Urine Ketones NEGATIVE mg/dL (NEGATIVE) 10/24/16 22:34 Urine Occult Blood TRACE-INTA (NEGATIVE) 10/24/16 22:34 Urine Nitrite NEGATIVE (NEGATIVE) 10/24/16 22:34 Urine Bilirubin NEGATIVE (NEGATIVE) 10/24/16 22:34 Urine Urobilinogen 0.2 (NORMAL) E.U./dL (NORMAL) 10/24/16 22:34 Ur Leukocyte Esterase NEGATIVE (NEGATIVE) 10/24/16 22:34 Ur Microscopic Review NOT INDICATED 10/24/16 22:34 Urine Culture Comments NOT INDICATED 10/24/16 22:34 Last Dose Date 10/27/16 10/28/16 06:25 Last Dose Time 200310/28/16 06:25 Vancomycin Trough 13.9 ug/mL (5.0-15.0) 10/28/16 06:25 Urine Opiates Screen NEGATIVE (NEGATIVE) 10/24/16 22:34 Ur Oxycodone Screen NEGATIVE (NEGATIVE) 10/24/16 22:34 Urine Methadone Screen NEGATIVE (NEGATIVE) 10/24/16 22:34 Ur Propoxyphene Screen NEGATIVE (NEGATIVE) 10/24/16 22:34 Ur Barbiturates Screen NEGATIVE (NEGATIVE) 10/24/16 22:34 Ur Tricyclics Screen NEGATIVE (NEGATIVE) 10/24/16 22:34 Ur Phencyclidine Scrn NEGATIVE (NEGATIVE) 10/24/16 22:34 Ur Amphetamine Screen NEGATIVE (NEGATIVE) 10/24/16 22:34 U Methamphetamines Scrn NEGATIVE (NEGATIVE) 10/24/16 22:34 U Benzodiazepines Scrn NEGATIVE (NEGATIVE) 10/24/16 22:34 Urine Cocaine Screen NEGATIVE (NEGATIVE) 10/24/16 22:34 U Cannabinoids Screen NEGATIVE (NEGATIVE) 10/24/16 22:34 Serum Ketones NEGATIVE (NEGATIVE) 10/24/16 15:36 - Procedures Procedures: Procedures CATARAC PHACOEMULS/ASPIR (12/29/13) INSERT LENS AT CATAR EXT (12/29/13)
[2016-10-29] MEDS: METOPROLOL TARTRATE 25 MG TABLET PO SCH (08:04)
[2016-10-29] MEDS: ENOXAPARIN 40 MG/0.4 ML SYRINGE SUBQ SCH (08:04)
[2016-10-29] MEDS: FAMOTIDINE 20 MG TABLET PO SCH (08:05)
[2016-10-29] MEDS: INSULIN ASPART 300 UNIT/3 ML PEN SUBQ SCH ×4 (08:05→20:53)
[2016-10-29] MEDS: POLYETHYLENE GLYCOL 3350 17 GM PACKET PO SCH (08:06)
[2016-10-29] MEDS: INSULIN GLARGINE 300 UNIT/3 ML PEN SUBQ SCH ×2 (08:06→20:53)
[2016-10-29 08:52] LABS: BASOPHILS # (AUTO) 0.1 10^3/uL (0.0-0.1); BASOPHILS % (AUTO) 1.3 %; EOSINOPHILS # (AUTO) 0.3 10^3/uL (0.0-0.7); HCT - HEMATOCRIT 35.4 % (42.0-52.0); HGB - HEMOGLOBIN 12.3 g/dL (14.0-18.0); LYMPHOCYTES # (AUTO) 1.2 10^3/uL (1.5-3.5); LYMPHOCYTES % (AUTO) 14.7 %; MEAN CORPUSCULAR HEMOGLOBIN 30.3 pg (27.0-31.0); MEAN CORPUSCULAR HGB CONC 34.6 g/dL (32.0-36.0); MEAN CORPUSCULAR VOLUME 87.6 fL (80.0-94.0); MEAN PLATELET VOLUME 8.9 fL (7.4-11.4); MONOCYTES % (AUTO) 12.4 %; NEUTROPHILS # (AUTO) 5.7 10^3/uL (1.5-6.6); NEUTROPHILS % (AUTO) 67.6 %; NUCLEATED RED BLOOD CELLS AUTO 0.1 /100WBC; RED BLOOD COUNT 4.04 10^6/uL (4.70-6.10); RED CELL DISTRIBUTION WIDTH 12.8 % (12.0-15.0); UNCORRECTED WHITE BLOOD COUNT 8.4 x10^3/uL; WHITE BLOOD COUNT 8.4 x10^3/uL (4.8-10.8)
[2016-10-29 09:12] LABS: ALBUMIN/GLOBULIN RATIO 0.7 (1.0-2.2); BILIRUBIN,TOTAL 0.6 mg/dL (0.2-1.0); CALCIUM 9.1 mg/dL (8.5-10.3); CREATININE 0.9 mg/dL (0.6-1.2); TOTAL PROTEIN 7.5 g/dL (6.7-8.2)
[2016-10-29] MEDS: SULFAMETH/TRIMETH DS 800/160 MG TABLET PO SCH ×2 (11:40→20:52)
[2016-10-29] MEDS: CHOLECALCIFEROL 5,000 UNIT CAPSULE PO SCH ×2 (11:40→20:52)
[2016-10-29] MEDS: MULTIVITAMIN W/MINERALS TABLET PO SCH (11:49)
[2016-10-29] MEDS ORDERED: SENNA 8.6 MG TABLET PO SCH (19:00)
[2016-10-29] MEDS ORDERED: DOCUSATE SODIUM 250 MG CAPSULE PO SCH (19:00)
[2016-10-30] MEDS: CEFEPIME 1 GM in SODIUM CHLORIDE 0.9% MINIBAG 100 ML IV SCH ×2 (02:52→11:41)
[2016-10-30] MEDS: SODIUM CHLORIDE FLUSH 0.9% 10 ML SYRINGE IVP SCH (05:09)
[2016-10-30] MEDS ORDERED: MAGNESIUM SULFATE 2 GRAM 50 ML IV ONE (08:00)
--- NOTE | 2016-10-30 08:32 | PROVIDER PROGRESS NOTE ---
Subjective - General Admit Date: 10/24/16 Procedure Date: 10/27/16 Post Op Days: 3 Procedure Performed: 2nd toe amputation left - Review of Systems Wound/Incisions: positive: Healing well General: positive: No symptoms Objective - Patient Data Reviewed Vital Signs: Yes Vital Signs: Vital Signs x48h Temp Pulse Resp BP Pulse Ox 10/30/16 07:22 37.1 C 77 18 126/63 96 Intake & Output: Intake and Output Totals x24h 10/28/16 10/29/16 10/30/16 23:59 23:59 23:59 Intake Total 4948 3990 150 Output Total 5325 4000 1350 Balance -377 10 -6193 - Lab Results Lab Results: 10/30/16 08:53 10/30/16 08:53 Other Lab Results: Lab Results x24hrs 10/30/16 10/29/16 10/29/16 Range/Units 07:17 20:37 16:56 WBC (4.8-10.8) x10^3/uL RBC (4.70-6.10) 10^6/uL Hgb (14.0-18.0) g/dL Hct (42.0-52.0) % MCV (80.0-94.0) fL MCH (27.0-31.0) pg MCHC (32.0-36.0) g/dL RDW (12.0-15.0) % Plt Count (130-450) 10^3/uL MPV (7.4-11.4) fL Neut # (1.5-6.6) 10^3/uL Lymph # (1.5-3.5) 10^3/uL [place]ison # (0.0-1.0) 10^3/uL Eos # (0.0-0.7) 10^3/uL Baso # (0.0-0.1) 10^3/uL Absolute Nucleated RBC x10^3/uL Nucleated RBCs /100WBC Sodium (135-145) mmol/L Potassium (3.5-5.0) mmol/L Chloride (101-111) mmol/L Carbon Dioxide (21-32) mmol/L Anion Gap (6-13) BUN (6-20) mg/dL Creatinine (0.6-1.2) mg/dL Estimated GFR (MDRD) (>89) Glucose (70-100) mg/dL POC Whole Bld Glucose 146 H 214 H 175 H (70 - 100) mg/dL Calcium (8.5-10.3) mg/dL Phosphorus (2.5-4.6) mg/dL Magnesium (1.7-2.8) mg/dL Total Bilirubin (0.2-1.0) mg/dL AST (10-42) IU/L ALT (10-60) IU/L Alkaline Phosphatase (42-121) IU/L Total Protein (6.7-8.2) g/dL Albumin (3.2-5.5) g/dL Globulin (2.1-4.2) g/dL Albumin/Globulin Ratio (1.0-2.2) 10/29/16 10/29/16 10/29/16 Range/Units 11:00 08:34 08:34 WBC (4.8-10.8) x10^3/uL RBC (4.70-6.10) 10^6/uL Hgb (14.0-18.0) g/dL Hct (42.0-52.0) % MCV (80.0-94.0) fL MCH (27.0-31.0) pg MCHC (32.0-36.0) g/dL RDW (12.0-15.0) % Plt Count (130-450) 10^3/uL MPV (7.4-11.4) fL Neut # (1.5-6.6) 10^3/uL Lymph # (1.5-3.5) 10^3/uL Addison # (0.0-1.0) 10^3/uL Eos # (0.0-0.7) 10^3/uL Baso # (0.0-0.1) 10^3/uL Absolute Nucleated RBC x10^3/uL Nucleated RBCs /100WBC Sodium (135-145) mmol/L Potassium (3.5-5.0) mmol/L Chloride (101-111) mmol/L Carbon Dioxide (21-32) mmol/L Anion Gap (6-13) BUN (6-20) mg/dL Creatinine (0.6-1.2) mg/dL Estimated GFR (MDRD) (>89) Glucose (70-100) mg/dL POC Whole Bld Glucose 277 H (70 - 100) mg/dL Calcium (8.5-10.3) mg/dL Phosphorus 3.0 (2.5-4.6) mg/dL Magnesium 1.7 (1.7-2.8) mg/dL Total Bilirubin (0.2-1.0) mg/dL AST (10-42) IU/L ALT (10-60) IU/L Alkaline Phosphatase (42-121) IU/L Total Protein (6.7-8.2) g/dL Albumin (3.2-5.5) g/dL Globulin (2.1-4.2) g/dL Albumin/Globulin Ratio (1.0-2.2) 10/29/16 10/29/16 Range/Units 08:34 08:34 WBC 8.4 (4.8-10.8) x10^3/uL RBC 4.04 L (4.70-6.10) 10^6/uL Hgb 12.3 L (14.0-18.0) g/dL Hct 35.4 L (42.0-52.0) % MCV 87.6 (80.0-94.0) fL MCH 30.3 (27.0-31.0) pg MCHC 34.6 (32.0-36.0) g/dL RDW 12.8 (12.0-15.0) % Plt Count 331 (130-450) 10^3/uL MPV 8.9 (7.4-11.4) fL Neut # 5.7 (1.5-6.6) 10^3/uL Lymph # 1.2 L (1.5-3.5) 10^3/uL Addison # 1.0 (0.0-1.0) 10^3/uL Eos # 0.3 (0.0-0.7) 10^3/uL Baso # 0.1 (0.0-0.1) 10^3/uL Absolute Nucleated RBC 0.01 x10^3/uL Nucleated RBCs 0.1 /100WBC Sodium 136 (135-145) mmol/L Potassium 4.0 (3.5-5.0) mmol/L Chloride 98 L (101-111) mmol/L Carbon Dioxide 29 (21-32) mmol/L Anion Gap 9.0 (6-13) BUN 12 (6-20) mg/dL Creatinine 0.9 (0.6-1.2) mg/dL Estimated GFR (MDRD) 103 (>89) Glucose 256 H (70-100) mg/dL POC Whole Bld Glucose (70 - 100) mg/dL Calcium 9.1 (8.5-10.3) mg/dL Phosphorus (2.5-4.6) mg/dL Magnesium (1.7-2.8) mg/dL Total Bilirubin 0.6 (0.2-1.0) mg/dL AST 34 (10-42) IU/L ALT 56 (10-60) IU/L Alkaline Phosphatase 97 (42-121) IU/L Total Protein 7.5 (6.7-8.2) g/dL Albumin 3.0 L (3.2-5.5) g/dL Globulin 4.5 H (2.1-4.2) g/dL Albumin/Globulin Ratio 0.7 L (1.0-2.2) - Current Medications Current Medications: Current Medications Generic Name Dose Route Start Last Admin Trade Name Freq PRN Reason Stop Dose Admin Acetaminophen 650 mg 10/24/16 18:16 10/26/16 20:45 Tylenol PO 650 mg Q4HR PRN Administration Pain 1 to 4 Acetaminophen/Hydrocodone Bitart 1 tab 10/24/16 18:16 10/27/16 06:31 [place] 5/325 PO 1 tab Q4HR PRN Administration Pain 5 to 7 Cholecalciferol 5,000 unit 10/29/16 09:00 10/29/16 20:52 Vitamin D3 PO 5,000 unit BID PAUL Administration Enoxaparin Sodium 40 mg 10/25/16 09:00 10/29/16 08:04 Lovenox SUBQ 40 mg DAILY PAUL Administration Famotidine 20 mg 10/25/16 09:00 10/29/16 08:05 Pepcid PO 20 mg DAILY PAUL Administration Cefepime HCl 1 gm/ Sodium 100 mls @ 200 mls/hr 10/27/16 19:00 10/30/16 02:52 Chloride IV 200 mls/hr Q8H PAUL Administration Insulin Aspart 3 - 11 unit 10/25/16 12:00 10/29/16 20:53 Novolog SUBQ 5 unit 0800,1200,1700,2100 PAUL Administration Protocol Insulin Glargine 5 unit 10/29/16 09:00 10/29/16 20:53 Lantus Solostar SUBQ 5 unit BID PAUL Administration Metoprolol Tartrate 25 mg 10/26/16 09:00 10/29/16 08:04 Lopressor PO 25 mg DAILY PAUL Administration Multivitamins/Minerals 1 tab 10/29/16 09:00 10/29/16 11:49 Theragran M PO 1 tab DAILYWM PAUL Administration Polyethylene Glycol 17 gm 10/25/16 09:00 10/29/16 08:06 Miralax PO 17 gm DAILY PAUL Administration Sodium Chloride 10 ml 10/24/16 18:16 10/27/16 11:15 Normal Saline Flush 0.9% IVP 10 ml PRN PRN Administration NEEDED PER PROVIDER ORDERS Sodium Chloride 10 ml 10/24/16 22:00 10/30/16 05:09 Normal Saline Flush 0.9% IVP 10 ml Q8HR PAUL Administration Throat Lozenges 1 lozenge 10/28/16 03:17 10/28/16 03:23 Cepacol MM 1 lozenge Q2HR PRN Administration Throat pain Trimethoprim/Sulfamethoxazole 1 tab 10/29/16 11:00 10/29/16 20:52 Bactrim Ds 800/160 PO 1 tab BID PAUL Administration - Physical Exam Wound/Incisions: positive: Drainage General Appearance: positive: No acute distress Extremities: positive: No pedal edema Neurologic/Psychiatric: positive: Motor nml Impression/Plan - Problem List Problem List: POD#3 Pt's wound has only slight drainage and not foul smelling Swelling is diminished. PLan:: D/c to home with dressing changes and Abx. RTC next week. Change dressing daily.
[2016-10-30] MEDS ORDERED: SODIUM CHLORIDE FLUSH 0.9% 10 ML SYRINGE IVP ONE (09:05)
[2016-10-30 09:14] LABS: BASOPHILS # (AUTO) 0.1 10^3/uL (0.0-0.1); EOSINOPHILS # (AUTO) 0.2 10^3/uL (0.0-0.7); EOSINOPHILS % (AUTO) 2.9 %; HCT - HEMATOCRIT 35.4 % (42.0-52.0); HGB - HEMOGLOBIN 12.2 g/dL (14.0-18.0); LYMPHOCYTES # (AUTO) 1.4 10^3/uL (1.5-3.5); LYMPHOCYTES % (AUTO) 17.3 %; MEAN CORPUSCULAR HEMOGLOBIN 30.3 pg (27.0-31.0); MEAN CORPUSCULAR HGB CONC 34.5 g/dL (32.0-36.0); MEAN CORPUSCULAR VOLUME 87.8 fL (80.0-94.0); MEAN PLATELET VOLUME 8.6 fL (7.4-11.4); MONOCYTES % (AUTO) 12.3 %; NEUTROPHILS # (AUTO) 5.3 10^3/uL (1.5-6.6); NEUTROPHILS % (AUTO) 66.5 %; RED BLOOD COUNT 4.03 10^6/uL (4.70-6.10); RED CELL DISTRIBUTION WIDTH 12.7 % (12.0-15.0)
[2016-10-30] MEDS: INSULIN GLARGINE 300 UNIT/3 ML PEN SUBQ SCH (09:16)
[2016-10-30] MEDS: INSULIN ASPART 300 UNIT/3 ML PEN SUBQ SCH ×2 (09:17→11:07)
[2016-10-30] MEDS: METOPROLOL TARTRATE 25 MG TABLET PO SCH (09:18)
[2016-10-30] MEDS: FAMOTIDINE 20 MG TABLET PO SCH (09:18)
[2016-10-30] MEDS: SULFAMETH/TRIMETH DS 800/160 MG TABLET PO SCH (09:18)
[2016-10-30] MEDS: CHOLECALCIFEROL 5,000 UNIT CAPSULE PO SCH (09:18)
[2016-10-30] MEDS: MULTIVITAMIN W/MINERALS TABLET PO SCH (09:20)
[2016-10-30] MEDS: POLYETHYLENE GLYCOL 3350 17 GM PACKET PO SCH (09:21)
[2016-10-30 09:23] VITALS: BP 126/67
[2016-10-30 09:30] LABS: ALBUMIN/GLOBULIN RATIO 0.6 (1.0-2.2); BILIRUBIN,TOTAL 0.4 mg/dL (0.2-1.0); CALCIUM 9.4 mg/dL (8.5-10.3); CREATININE 1.2 mg/dL (0.6-1.2); POTASSIUM 4.4 mmol/L (3.5-5.0); TOTAL PROTEIN 7.4 g/dL (6.7-8.2)
[2016-10-30] MEDS: SODIUM CHLORIDE FLUSH 0.9% 10 ML SYRINGE IVP PRN (10:26)
[2016-10-30] MEDS: ENOXAPARIN 40 MG/0.4 ML SYRINGE SUBQ SCH (10:26)
[2016-10-30] MEDS ORDERED: INSULIN GLARGINE 300 UNIT/3 ML PEN SUBQ SCH (10:31)
--- NOTE | 2016-10-30 10:34 | Discharge Plan ---
Discharge Plan Disposition: Home, Self Care Condition: Good Prescriptions: HYDROcod/ACETAM 5/325 [[place] 5/325] 1 tab PO Q4HR PRN #30 tablet PRN Reason: Pain 5 to 7 Sulfamethox/Trimeth 800/160 [Bactrim Ds] 1 tab PO BID #20 tablet Multivitamin W/Minerals [Theragran M] 1 tab PO DAILYWM #30 tablet Cholecalciferol [Vitamin D3] 5,000 unit PO BID #60 capsule Diet: Diabetic (please check your blood glucose with meter before meals and after about 2 hours later.) Shower Restrictions: Yes (Do not get left foot and dressing wet. ) Driving Restrictions: Yes (no driving until seen by ortho next week) Assistance Devices: Walker, Cane Weight Bearing: ortho to give instruction Instruction Topics: Amputation Phantom Sensation Pain, Diabetes Audio Production Instructor Complications, Diabetes Keep Feet Healthy, Diabetes Inspect Feet Additional Instructions or Follow Up instructions: 1. Please take all home medications as prescribed. You have been given an antibiotic. please take as prescribed until all gone. You will need to take pain medications as prescribed and you can use tylenol for mild pain 2. Continue to eat a low carbohydrate diabetic diet as instructed. You will need to check your blood glucose frequently since your sugar can rise after having surgery and with infections. You have been given an insulin pen to use at night. Please call your primary doctor if you have questions regarding its use. 3. Drink plenty of water in the day. Avoid soda and limit the amount of caffeine during the day since it can dehydrate you 4. Make sure to elevate your leg when sitting to avoid it swelling more. You need to walk as much as you can and then take breaks inbetween to rest your foot. Use the walker, cane or crutches as instructed by wound care and physical therapy 5. Please see your surgeon within the next 3-4 days as scheduled. You will need to call the office for an appointment. You will need to change the bandage daily as instructed and if you have questions come to the wound clinic at the hospital for help. 6. Return to the ER if you have increased pain, bleeding excessively from wound site, fever, chest pain or shortness of breath Follow-Up Care: [facility] - Wound/Ostomy, [facility] - Diabetes Ed No Smoking: If you smoke, Please STOP! Call for help.
--- NOTE | 2016-10-30 10:52 | DISCHARGE SUMMARY ---
Discharge Summary Admit Date: 10/24/16 Discharge Date: 10/30/16 Discharging Provider: Marii Mazariegos APRN Primary Care Provider: Randal Collins MD Code Status: Attempt Resuscitation Condition at Discharge: Good Discharge Disposition: 01 Home, Self Care Discharge Facility Name: home with self care and MAC - DIAGNOSES Admission Diagnoses: 1. Diabetes mellitus insulin controlled with complications secondary to peripheral angiopathy with gangrene of left 2nd toe of foot 2. Noncompliance of medications with uncontrolled diabetes mellitus with hyperglycemia and A1C 12 3. Hyperlipidemia, mixed 5. Hypertensive heart disease without CHF Discharge Diagnoses with Status of Each Condition: 1. Diabetes mellitus insulin controlled with complications secondary to peripheral angiopathy with gangrene of left 2nd toe of foot 2. Noncompliance of medications with uncontrolled diabetes mellitus with hyperglycemia and A1C 12 3. 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 Hyperlipidemia, mixed 5. Hypertensive heart disease without CHF - HPI History of Present Illness: This is a 65-year-old male with significant past medical history of DM2, HTN, Hyperlipidmia, who present emergence department for evaluation of fever and ulcer at the second toe of left lower extremity. Patient report he has not taken his insulin for at least 4 months. When ask the reason why he did not take his insulin, patient report he has been fine "not any problem." Patient state he found his second toe became swelling about 4 days ago, then had drainage, and became foul smell. Patient also report he had fever at home. In the emergence room, he is febrile at 38.9. Patient denies any chest pain, headache, abdominal pain. There is no nausea, vomiting or diarrhea, vision changing, dysuria, or hematuria, GI bleeding. In emergence room lab test reveals some significantly test results: glucose 295 but negative ketone at urine and serum, lactic aced 1.0, WBC 13.6, Sodium 129. Xray of second toe reveals soft tissue lesion. Patient is admitted for evaluation of diabetes ulcer. - CONSULTS | PROCEDURES Consultations: surgery-ortho with amputation of left toe 2nd Procedures: amputation of 2nd toe of left foot - HOSPITAL COURSE Hospital Course: This is a 65-year-old male with significant past medical history of DM2, HTN, Hyperlipidmia, who present emergence department for evaluation of fever and ulcer at the second toe of left lower extremity. Patient report he has not taken his insulin for at least 4 months. When ask the reason why he did not take his insulin, patient report he has been fine "not any problem." Patient state he found his second toe became swelling about 4 days ago, then had drainage, and became foul smell. Patient also report he had fever at home. While in the ER he was febrile at 38.9. elevated glucose 295 but negative ketone at urine and serum, lactic aced 1.0, WBC 13.6, Sodium 129. He was treated for hyperglycemia and put on accucheck ACHS with sliding scale insulin. He was put on lantus at night and morning. He was given cefepime as antibiotic treatment and started on Vancomycin for dual coverage. He was given tylenol for fever, IVF for hydration and Arvada for moderate to severe pain. He continued on statin for cholesterol. Surgery took patient for amputation of 2nd toe with gangrene but no osteomylitis. He grew out citrobacter braaki from wound sensitive to cefepime and bactrim. Patient completed a 5 day course of cefepime and was also placed on oral bactrim to be discharged home with. He remained afebrile after surgery and was given instruction for wound care by the [facility] nurse and diabetic education provided by nutrition. He will be sent home with wound supplies and instructions to followup with ortho within 1 week of discharge. Physical therapy worked with patient for ambulation. he was able to ambulate without PT assist on day of discharge. He would go home with family and see [facility] clinic for wound care. He was instructed to change dressings daily. He understands he is to check his blood glucose with each meal and dose insulin as instructed. - ALLERGIES Allergies/Adverse Reactions: Allergies Allergy/AdvReac Type Severity Reaction Status Date / Time No Known Drug Allergies Allergy Verified 04/14/14 18:02 - MEDICATIONS Home Medications: Ambulatory Orders Medication Instructions Recorded Confirmed Insulin Glargine [Lantus] 25 unit SUBQ QPM 03/31/13 10/27/16 raNITIdine [Zantac] 150 mg PO DAILY 03/31/13 10/27/16 Metoprolol Tartrate 25 mg ORAL DAILY 12/29/13 10/27/16 Cholecalciferol [Vitamin D3] 5,000 unit PO BID #60 capsule 10/30/16 HYDROcod/ACETAM 5/325 [Arvada 5/325] 1 tab PO Q4HR PRN #30 tablet 10/30/16 Multivitamin W/Minerals [Theragran 1 tab PO DAILYWM #30 tablet 10/30/16 M] Sulfamethox/Trimeth 800/160 1 tab PO BID #20 tablet 10/30/16 [Bactrim Ds] metFORMIN [Glucophage] 500 mg PO BID #0 10/30/16 10/27/16 - PHYSICAL EXAM AT DISCHARGE General Appearance: positive: No acute distress, Alert Eyes Bilateral: positive: Normal inspection, PERRL, EOMI, No lid inflammation ENT: positive: ENT inspection nml, Pharynx nml, No signs of dehydration Neck: positive: Nml inspection, Thyroid nml, No JVD, Trachea midline Respiratory: positive: Chest non-tender, No respiratory distress, Breath sounds nml Cardiovascular: positive: Regular rate & rhythm, No murmur, No gallop. negative : Tachycardia Abdomen: positive: Non-tender, No organomegaly, Nml bowel sounds, No distention. negative: Guarding, Rebound Back: positive: Nml inspection Skin: positive: Color nml, No rash, Other (wound is with dry drainage and no erythema mild edema on second toe region left foot) Extremities: positive: Full ROM, Nml appearance, Other (amputation on left foot , right toes with gangrene to middle toes). negative: Calf tenderness, Joint swelling Neurologic/Psychiatric: positive: Oriented x3, CN's nml (2-12), Motor nml, Sensation nml, Mood/affect nml - LABS Result Diagrams: 10/30/16 08:53 10/30/16 08:53 Other Lab Results: Abnormal Lab Results 10/28/16 10/28/16 10/28/16 11:29 16:19 20:26 RBC Hgb Hct Lymph # Chloride Estimated GFR (MDRD) Glucose POC Whole Bld Glucose 255 mg/dL H mg/dL 230 mg/dL H mg/dL 287 mg/dL H mg/dL (70 - 100) (70 - 100) (70 - 100) Albumin Globulin Albumin/Globulin Ratio 10/29/16 10/29/16 10/29/16 07:26 08:34 08:34 RBC 4.04 10^6/uL L 10^6/uL (4.70-6.10) Hgb 12.3 g/dL L g/dL (14.0-18.0) Hct 35.4 % L % (42.0-52.0) Lymph # 1.2 10^3/uL L 10^3/uL (1.5-3.5) Chloride 98 mmol/L L mmol/L (101-111) Estimated GFR (MDRD) Glucose 256 mg/dL H mg/dL (70-100) POC Whole Bld Glucose 155 mg/dL H mg/dL (70 - 100) Albumin 3.0 g/dL L g/dL (3.2-5.5) Globulin 4.5 g/dL H g/dL (2.1-4.2) Albumin/Globulin Ratio 0.7 L (1.0-2.2) 10/29/16 10/29/16 10/29/16 11:00 16:56 20:37 RBC Hgb Hct Lymph # Chloride Estimated GFR (MDRD) Glucose POC Whole Bld Glucose 277 mg/dL H mg/dL 175 mg/dL H mg/dL 214 mg/dL H mg/dL (70 - 100) (70 - 100) (70 - 100) Albumin Globulin Albumin/Globulin Ratio 10/30/16 10/30/16 10/30/16 07:17 08:53 08:53 RBC 4.03 10^6/uL L 10^6/uL (4.70-6.10) Hgb 12.2 g/dL L g/dL (14.0-18.0) Hct 35.4 % L % (42.0-52.0) Lymph # 1.4 10^3/uL L 10^3/uL (1.5-3.5) Chloride 97 mmol/L L mmol/L (101-111) Estimated GFR (MDRD) 74 L (>89) Glucose 256 mg/dL H mg/dL (70-100) POC Whole Bld Glucose 146 mg/dL H mg/dL (70 - 100) Albumin 2.9 g/dL L g/dL (3.2-5.5) Globulin 4.5 g/dL H g/dL (2.1-4.2) Albumin/Globulin Ratio 0.6 L (1.0-2.2) - DIAGNOSTIC IMAGING Diagnostic Imaging Results: See rad report - FOLLOW UP Follow Up: patient verbally understands that she is to see ortho within the next week of discharge. He is to see [facility] clinic for wounds care. He was given instructions for care of wound by nursing and surgery. He was provided supplies for wounds - TIME SPENT Time Spent in Discharge (Minutes): 45 (Patient planning, assessment and instructions given at bedside)
--- NOTE | 2016-11-16 14:27 | OPERATIVE REPORT ---
DATE OF SURGERY: 10/27/2016 00:00:00 PREOPERATIVE DIAGNOSIS: Gangrene of the left 2nd toe secondary to diabetes mellitus type 2. POSTOPERATIVE DIAGNOSIS: Gangrene of the left 2nd toe secondary to diabetes mellitus type 2. NAME OF PROCEDURE: Amputation of the left 2nd toe at the metatarsophalangeal joint level. SURGEON: Neal Manzanares MD ANESTHESIA: He Stover CRNA. Anesthesia technique was general endotracheal. PATHOLOGY: Was left 2nd toe sent to pathology for cultures and Gram stain. IV FLUIDS: 1000 mL. ESTIMATED BLOOD LOSS: None. COMPLICATIONS: None. CONDITION AT END OF PROCEDURE: Stable. DRESSING: Silvadene, gauze, Annie wrap. DISPOSITION: PACU then Med/Surg. INDICATIONS: This is a 65-year-old male with a longstanding history of poorly controlled type 2 diabe ashley mellitus who presented to the hospital with acute swelling, erythema and drainage, as well as a m alodorous left 2nd toe. Evaluation of the 2nd toe revealed evidence of gangrene with the toe turning black and demarcating at the level of the metatarsophalangeal joint. It was elected to take him to [facility] operating room to perform a resection of the left 2nd toe at the metatarsophalangeal joint level. PROCEDURE IN DETAIL: After consent and identification, the patient was brought to the operating room and placed in a supine position on the operating table. After induction of a general endotracheal ane sthesia and appropriate monitoring, the left lower extremity was prepped and draped free in the usual sterile fashion for lower extremity surgery. A padded tourniquet was placed above the knee but was not used. After an appropriate timeout was conducted, we mapped out a fish mouth shaped incision with the apice s on the dorsal and plantar surfaces of the foot at the 2nd ray metatarsophalangeal joint level. This elliptical incision was carried out with a 15 blade scalpel through the skin and subcutaneous tissue . While we did not encounter gross purulence, we did encounter some serosanguineous fluid. We took ca re to preserve the transverse ligaments and disarticulated the 2nd toe at the level of the metatarsop halangeal joint by dividing the dorsal capsule of the 2nd toe, the medial and lateral collateral liga ments at the metatarsophalangeal joint level, and the disarticulated toe was delivered after the tend ons were transected from the wound and sent to pathology. We thoroughly irrigated the wound with a total of 6 L of sterile saline, the first 3 L contained 5 mL of chlorhexidine. Following thorough debridement, we checked for any other devitalized tissue and pe rformed sharp resection with a 15 blade scalpel, curet and rongeur of any additional fragments, tendo n and ligaments down to the level of the metatarsophalangeal joint. The wound was then provisionally closed with interrupted vertical mattress 2-0 PDS sutures x3. A dressing of Silvadene and fluff Kerli x was then placed between the great toe and the 3rd toe to cover the wound. We then wrapped the foot with Annie wrap and an Dominic bandage from the mid calf down to the toes. On completion of the procedure , the patient was extubated and transferred to the recovery room in good condition having tolerated t he procedure well. JOB #: [id number] EXT JOB #:[id number]
== END 2016-10-30 14:00 | disposition home or self-care (01) | DRG 617 ==
LOC: ED 14:42 → MS2 18:19
PROVIDERS: ADMIT Nurse Practitioner Gerontology; ATTEND Nurse Practitioner
PROC: 0Y6S0Z0 Detachment at Left 2nd Toe, Complete, Open Approach (ICD-10-PCS; principal; 2016-10-27 11:45)
DX: E11.621 Type 2 diabetes mellitus with foot ulcer (principal); E11.52 Type 2 diabetes mellitus with diabetic peripheral angiopathy with gangrene; L97.521 Non-pressure chronic ulcer of other part of left foot limited to breakdown of skin; E11.65 Type 2 diabetes mellitus with hyperglycemia; T38.3X6A Underdosing of insulin and oral hypoglycemic [antidiabetic] drugs, initial encounter; E78.2 Mixed hyperlipidemia; I11.9 Hypertensive heart disease without heart failure; B96.89 Other specified bacterial agents as the cause of diseases classified elsewhere; K21.9 Gastro-esophageal reflux disease without esophagitis; Z16.30 Resistance to unspecified antimicrobial drugs; Z91.128 Patient's intentional underdosing of medication regimen for other reason; Z71.89 Other specified counseling; Z87.891 Personal history of nicotine dependence
CPT/HCPCS: 36415; 74175; 80053; 80306; 81001; 81003; 82009; 83036; 83605; 83690; 83735; 84100; 85025; 87070; 87086; 87205; 96361; 96374; 99283; 99285

== ENCOUNTER 2017-01-15 10:58 | Outpatient (CLI) | payer OTHER | END 2017-01-15 10:59 | disposition home or self-care (01) | LOC: DI 10:58 | PROVIDERS: ATTEND Family Medicine | DX: I73.9 Peripheral vascular disease, unspecified (principal) | CPT/HCPCS: 93306 ==

== ENCOUNTER 2017-02-03 16:50 | Outpatient (CLI) | payer OTHER ==
--- NOTE | 2017-02-05 09:25 | Ultrasound Report ---
CAROTID DUPLEX: 02/03/2017 CLINICAL INDICATION: Peripheral vascular disease. TECHNIQUE: Real-time sonographic vascular imaging was performed by the sorter/assay tech through the carotid arteries utilizing both color-flow and Doppler spectral analysis. Multiple medical sales representative static images were saved for review. Vessel PSV cm/sec 2D Plaque Estimate % EDV cm/sec ICA/CCA PSV % Stenosis RCCA Prox 91.4 -- RCCA Dist 59.5 13.5 -- RECA 92.5 -- RT BULB 66.0 -- 11.4 1.1 HECTOR Prox 50.3 -- 18.9 0.8 HECTOR Mid 41.5 -- 12.3 0.7 HECTOR Dist 63.9 -- 26.3 1.1 RVA 63.3 RVA flow direction: Antegrade. Vessel PSV cm/sec 2D Plaque Estimate % EDV cm/sec ICA/CCA PSV % Stenosis LCCA Prox 117.4 -- LCCA Dist 70.9 16.2 -- LECA 70.3 -- LFT BULB 69.8 -- 14.1 1.0 LICA Prox 63.3 -- 17.9 0.9 LICA Mid 68.9 -- 25.2 1.0 LICA Dist 79.5 -- 26.3 1.1 LVA 63.9 LVA flow direction: Antegrade. Velocity criteria are extrapolated from diameter data as defined by the Society of Radiologists in Ultrasound Consensus Conference Radiology 2003; 229; 340-346. Degree of Stenosis % ICA PSV cm/sec Plaque Estimate % ICA/CCA RSV Ratio ICA EDV cm/sec Normal < 125 None < 2.0 < 40 <50 < 125 < 50 < 2.0 < 40 50-69 125 - 130 >/= 50 2.0 - 4.0 40 - 100 >/= 70 but less than near occlusion > 230 >/= 50 > 4.0 > 100 Near occlusion High, low, or undetectable Visible lumen Variable Variable Total occlusion Undetectable No detectable lumen Not applicable Not applicable FINDINGS RIGHT: There is heterogeneous plaquing in the right carotid bifurcation, without evidence of a focal hemodynamically significant stenosis. LEFT: There is minimal plaquing in the left carotid bifurcation, without evidence of a focal hemodynamically significant stenosis. The vertebral arteries demonstrate antegrade flow bilaterally. IMPRESSION: NO EVIDENCE OF A FOCAL HEMODYNAMICALLY SIGNIFICANT ARTERIAL STENOSIS. MTDD
== END 2017-02-03 16:51 | disposition home or self-care (01) ==
LOC: DI 16:50
PROVIDERS: ATTEND Family Medicine
DX: I73.9 Peripheral vascular disease, unspecified (principal)
CPT/HCPCS: 93880

== ENCOUNTER 2019-02-14 15:05 | Outpatient (CLI) | payer MEDICARE, OTHER ==
--- NOTE | 2019-02-15 14:12 | Ultrasound Report ---
Reason: PVD Procedure Date: 02/14/2019 Accession Number: [id number] / [id number] Procedure: US - Ankle Brachial Index CPT Code: Final Report FULL RESULT: EXAM: BILATERAL ANKLE/BRACHIAL INDEX AND BILATERAL LOWER EXTREMITY ARTERIAL DUPLEX EXAMINATION. EXAM DATE: 02/14/2019 05:01 PM. CLINICAL HISTORY: PVD. COMPARISON: None. TECHNIQUE: A blood pressure cuff and pulse volume recording Doppler ultrasound was used to evaluate the arterial pressures in the arms and ankle. No images were acquired. FINDINGS: The bilateral lower extremity arterial system is interrogated with grayscale, spectral and color Doppler and found to be patent throughout the below vessels. By grayscale there is focal atherosclerotic disease diffusely which does not appear to occupy greater than 50% of the lumen. The following waveforms with preserved brisk systolic arterial upstrokes are seen with peak systolic velocities in centimeters per second. Right Leg: RESIDENTIAL SERVICE TECHNICIAN: PSV 121 cm/sec. Biphasic waveform. PSFA: PSV 113 cm/sec. Triphasic waveform. . MSFA: PSV 123 cm/sec. Triphasic waveform. DSFA: PSV 97 cm/sec. Triphasic waveform. PFA: PSV 80 cm/sec. Biphasic waveform. POP: PSV 77 cm/sec. Triphasic waveform. TAMMY: PSV 35 cm/sec. Biphasic waveform. TANK INSULATOR RUBBER: PSV 91 cm/sec. Monophasic waveform. PER: PSV 60 cm/sec. Triphasic waveform. DPA: PSV 32 cm/sec. Triphasic waveform. Left Leg: RESIDENTIAL SERVICE TECHNICIAN: PSV 105 cm/sec. Triphasic waveform. PSFA: PSV 108 cm/sec. Triphasic waveform. MSFA: PSV 164 cm/sec. Triphasic waveform. DSFA: PSV 69 cm/sec. Triphasic waveform. PFA: PSV 51 cm/sec. Biphasic waveform. POP: PSV 75 cm/sec. Triphasic waveform. TAMMY: PSV 75 cm/sec. Triphasic waveform. TANK INSULATOR RUBBER: PSV 78 cm/sec. Triphasic waveform. PER: PSV 42 cm/sec. Biphasic waveform. DPA: PSV 88 cm/sec. Triphasic waveform. Brachial pressure: Right brachial artery: 146/78 mmHg, index 1.00 Left brachial artery: 142/78 mmHg, index 1.00 Right ankle pressures: Posterior tibial artery: 147/90 mmHg, index 1 Left ankle pressures: Posterior tibial artery: 166/87 mmHg, index 1.1 IMPRESSION: 1. Right ankle/brachial index: 1.0. 2. Left ankle/brachial index: 1.1. ANKLE/BRACHIAL INDEX REFERENCE STANDARDS 1.0-1.4: Normal 0.90-0.99: Borderline < 0.9: Abnormal RADIA
--- NOTE | 2019-02-15 15:14 | Ultrasound Report ---
Reason: PVD Procedure Date: 02/14/2019 Accession Number: [id number] / [id number] Procedure: US - Duplex Lwr Ext Arterial Bilat CPT Code: Final Report FULL RESULT: EXAM: BILATERAL ANKLE/BRACHIAL INDEX AND BILATERAL LOWER EXTREMITY ARTERIAL DUPLEX EXAMINATION. EXAM DATE: 02/14/2019 05:01 PM. CLINICAL HISTORY: PVD. COMPARISON: None. TECHNIQUE: A blood pressure cuff and pulse volume recording Doppler ultrasound was used to evaluate the arterial pressures in the arms and ankle. No images were acquired. FINDINGS: The bilateral lower extremity arterial system is interrogated with grayscale, spectral and color Doppler and found to be patent throughout the below vessels. By grayscale there is focal atherosclerotic disease diffusely which does not appear to occupy greater than 50% of the lumen. The following waveforms with preserved brisk systolic arterial upstrokes are seen with peak systolic velocities in centimeters per second. Right Leg: ALUMNI RELATIONS OFFICER: PSV 121 cm/sec. Biphasic waveform. PSFA: PSV 113 cm/sec. Triphasic waveform. . MSFA: PSV 123 cm/sec. Triphasic waveform. DSFA: PSV 97 cm/sec. Triphasic waveform. PFA: PSV 80 cm/sec. Biphasic waveform. POP: PSV 77 cm/sec. Triphasic waveform. TAMMY: PSV 35 cm/sec. Biphasic waveform. IT ARCHITECTURE CONSULTANT: PSV 91 cm/sec. Monophasic waveform. PER: PSV 60 cm/sec. Triphasic waveform. DPA: PSV 32 cm/sec. Triphasic waveform. Left Leg: ALUMNI RELATIONS OFFICER: PSV 105 cm/sec. Triphasic waveform. PSFA: PSV 108 cm/sec. Triphasic waveform. MSFA: PSV 164 cm/sec. Triphasic waveform. DSFA: PSV 69 cm/sec. Triphasic waveform. PFA: PSV 51 cm/sec. Biphasic waveform. POP: PSV 75 cm/sec. Triphasic waveform. TAMMY: PSV 75 cm/sec. Triphasic waveform. IT ARCHITECTURE CONSULTANT: PSV 78 cm/sec. Triphasic waveform. PER: PSV 42 cm/sec. Biphasic waveform. DPA: PSV 88 cm/sec. Triphasic waveform. Brachial pressure: Right brachial artery: 146/78 mmHg, index 1.00 Left brachial artery: 142/78 mmHg, index 1.00 Right ankle pressures: Posterior tibial artery: 147/90 mmHg, index 1 Left ankle pressures: Posterior tibial artery: 166/87 mmHg, index 1.1 IMPRESSION: 1. Right ankle/brachial index: 1.0. 2. Left ankle/brachial index: 1.1. ANKLE/BRACHIAL INDEX REFERENCE STANDARDS 1.0-1.4: Normal 0.90-0.99: Borderline < 0.9: Abnormal RADIA
== END 2019-02-14 15:06 | disposition home or self-care (01) ==
LOC: DI 15:05
PROVIDERS: ATTEND Internal Medicine
DX: I73.9 Peripheral vascular disease, unspecified (principal)
CPT/HCPCS: 93922; 93925

== ENCOUNTER 2020-06-18 09:09 | Outpatient (CLI) | payer MEDICARE, OTHER | END 2020-06-18 09:10 | disposition EMS.NT | LOC: EMS 09:09 | DX: R51.9 Headache, unspecified (principal); R42 Dizziness and giddiness ==

== ENCOUNTER 2020-06-18 10:00 | Emergency (ER) | payer MEDICARE, OTHER ==
--- OUTSIDE RECORDS SUMMARY | 2020-06-18 10:38 | EXTERNAL MEDICAL SUMMARY RPT | Continuity of Care Document ---
:1950 Demographics Phone Unavailable Preferred Language Unknown Marital Status Unknown [employer] Affiliation Unknown Race Unknown Ethnic Group Unknown Author Organization [place] Address [address] [id number] Phone Social History date description facility [id number]
--- NOTE | 2020-06-18 11:11 | ED Physician Documentation ---
PD HPI HEADACHE - Stated complaint Stated Complaint: HEAD PX/BALANCE OFF - Chief complaint Chief Complaint: Neuro - History obtained from History obtained from: Patient - History of Present Illness Timing - onset: How many days ago (several days to a week of some headache, noted mostly in back of head/neck area, and some in frontal area/behind eyes. Also hase feeling of aching in lower legs/muscles with weakness of muscles and feeling difficulty walking. he states "legs feel weird". No injury, rash nor sores.) Timing - onset during: Light activity Timing - duration: Days Timing - details: Gradual onset, Intermittant Worst headache ever?: No: Worst headache ever? Location: Front, Back Quality: Aching, Tightness Associated symptoms: Nausea, Vision changes (he says some blurring of vision, but with macular degeneration historically and has much decreased vision already. He had been off meds for few months and resumed them couple weeks ago, for BP and diabetes. Had continued on cholesterol meds and ASA. NO injury.). No: Fever, Stiff neck, Vomiting Improved by: No: Rest Worsened by: No: Light, Noise Contributing factors: Hypertension. No: Anticoagulated, Recent illness, Trauma Similar symptoms before: Has not had sx before Recently seen: Not recently seen Review of Systems Constitutional: denies: Fever, Chills Nose: reports: Sinus pressure / pain. denies: Rhinorrhea / runny nose, Congestion Throat: denies: Sore throat Respiratory: denies: Cough GI: reports: Nausea. denies: Abdominal Pain, Vomiting, Diarrhea Skin: denies: Rash, Lesions, Abrasion (s) Musculoskeletal: reports: Extremity pain (lower legs without swelling. Feeling pain more in anterior legs.) Neurologic: reports: Generalized weakness (and feeling difficulty walking due to leg muscles/strength.). denies: Focal weakness, Numbness PD PAST MEDICAL HISTORY - Past Medical History Cardiovascular: Hypertension, High cholesterol Respiratory: None Endocrine/Autoimmune: Type 2 diabetes GI: GERD : None HEENT: None Psych: None Musculoskeletal: None Derm: None - Past Surgical History Past Surgical History: Yes Ortho: ACL reconstruction HEENT: Cataracts - Present Medications Home Medications: Ambulatory Orders Medication Instructions Recorded Confirmed Metoprolol Tartrate 25 mg ORAL DAILY 12/29/13 10/27/16 Cholecalciferol [Vitamin D3] 5,000 unit PO BID #60 capsule 10/30/16 HYDROcod/ACETAM 5/325 [[place] 5/325] 1 tab PO Q4HR PRN #30 tablet 10/30/16 Multivitamin W/Minerals [Theragran 1 tab PO DAILYWM #30 tablet 10/30/16 M] Sulfamethox/Trimeth 800/160 1 tab PO BID #20 tablet 10/30/16 [Bactrim Ds] metFORMIN [Glucophage] 500 mg PO BID #0 10/30/16 06/18/20 Amoxicillin 500 mg PO TID #21 cap 06/18/20 Cetirizine [ZyrTEC] 10 mg PO DAILY #15 tablet 06/18/20 Naproxen Sodium 275 mg PO BID #15 tablet 06/18/20 - Allergies Allergies/Adverse Reactions: Allergies Allergy/AdvReac Type Severity Reaction Status Date / Time No Known Drug Allergies Allergy Verified 06/18/20 10:22 - Social History Does the pt smoke?: Yes Smoking Status: Current some day smoker Does the pt drink ETOH?: Yes Does the pt have substance abuse?: No - Immunizations Immunizations are current?: Yes Immunizations: TDAP current <10years - POLST POLST Status: Full Code PD ED PE NORMAL - Vitals Vital signs reviewed: Yes - General General: Alert and oriented X 3, Well developed/nourished - HEENT HEENT: Atraumatic, PERRL (post cataract surgery changes. ), Pharynx benign - Neck Neck: Supple, no meningeal sign, No adenopathy, Other (some tenderness upper neck and lower occiput area. ) - Cardiac Cardiac: RRR, No murmur - Respiratory Respiratory: Clear bilaterally - Abdomen Abdomen: Soft, Non tender - Derm Derm: Normal color, Warm and dry - Extremities Extremities: No edema, No calf tenderness / cord, Other (some tenderness anterior thighs and lower legs in muscle areas. ) - Neuro Neuro: Alert and oriented X 3, margin analyst 2-12 intact, No motor deficit, No sensory deficit, Normal speech Eye Opening: Spontaneous Motor: Obeys Commands Verbal: Oriented GCS Score: 15 Results - Vitals Vitals: Vital Signs - 24 hr 06/18/20 06/18/20 06/18/20 10:06 11:55 12:21 Temperature 37.1 C Heart Rate 76 64 66 Respiratory 18 18 16 Rate Blood Pressure 166/99 H 155/88 H 153/84 H O2 Saturation 99 99 100 06/18/20 06/18/20 06/18/20 12:30 13:00 13:38 Temperature 36.6 C Heart Rate 67 64 69 Respiratory 16 16 18 Rate Blood Pressure 146/84 H 142/84 H 139/88 H O2 Saturation 100 100 100 Oxygen O2 Source Room air - Labs Labs: Laboratory Tests 06/18/20 06/18/20 06/18/20 11:59 11:59 11:59 WBC 4.5 L RBC 4.40 L Hgb 13.4 L Hct 38.8 L MCV 88.2 MCH 30.5 MCHC 34.5 RDW 12.3 Plt Count 222 MPV 11.6 H Neut # (Auto) 2.8 Lymph # (Auto) 1.1 L Mchenry # (Auto) 0.4 Eos # (Auto) 0.1 Baso # (Auto) 0.1 Absolute Nucleated RBC 0.00 Nucleated RBC % 0.0 ESR 23 H VBG pH VBG pCO2 VBG pO2 VBG HCO3 VBG Total CO2 VBG O2 Saturation VBG Base Excess Sodium 136 Potassium 4.6 Chloride 99 L Carbon Dioxide 29 Anion Gap 8.0 BUN 21 H Creatinine 1.1 Estimated GFR (MDRD) 81 L Glucose 204 H Calcium 9.6 Total Bilirubin 0.7 AST 29 ALT 34 Alkaline Phosphatase 75 Total Creatine Kinase 526 H Total Protein 7.5 Albumin 4.3 Globulin 3.2 Albumin/Globulin Ratio 1.3 Lipase 28 Serum Ketones NEGATIVE 06/18/20 11:59 WBC RBC Hgb Hct MCV MCH MCHC RDW Plt Count MPV Neut # (Auto) Lymph # (Auto) Mchenry # (Auto) Eos # (Auto) Baso # (Auto) Absolute Nucleated RBC Nucleated RBC % ESR VBG pH 7.343 VBG pCO2 55.4 H VBG pO2 23.1 L VBG HCO3 29.4 H VBG Total CO2 31.1 H VBG O2 Saturation 33.6 L VBG Base Excess 2.5 H Sodium Potassium Chloride Carbon Dioxide Anion Gap BUN Creatinine Estimated GFR (MDRD) Glucose Calcium Total Bilirubin AST ALT Alkaline Phosphatase Total Creatine Kinase Total Protein Albumin Globulin Albumin/Globulin Ratio Lipase Serum Ketones - Rads (name of study) head CT Radiology: Prelim report reviewed (no acute process intracranial. There is sinusitis noted. ), See rad report cervical spine CT Radiology: Prelim report reviewed (arthritic changes, no acute fractures. ), See rad report PD MEDICAL DECISION MAKING - ED course Complexity details: considered differential (having head pressure back of head/neck, and some frontal. Head CT showing no acute except some sinusitis. His leg pain/weakness seems to be related to muscles in legs. Has elevated CK, which might relate to statin use. No signs of DKA on labs. ), d/w patient Departure - Departure Disposition: 01 Home, Self Care Clinical Impression: Muscle inflammation due to drug Sinusitis Qualifiers: Sinusitis location: frontal Chronicity: acute Recurrence: non-recurrent Qualified Code(s): J01.10 - Acute frontal sinusitis, unspecified Headache Qualifiers: Headache type: unspecified Headache chronicity pattern: unspecified pattern Intractability: not intractable Qualified Code(s): R51.9 - Headache, unspecified Condition: Stable Record reviewed to determine appropriate education?: Yes Instructions: ED Myositis, ED Sinusitis Abx Tx Follow-Up: MANUEL ZIMMER MD [Primary Care Provider] - Prescriptions: Amoxicillin 500 mg PO TID #21 cap Naproxen Sodium 275 mg PO BID #15 tablet Cetirizine [ZyrTEC] 10 mg PO DAILY #15 tablet Comments: Your CT scan of the head does not show any acute intracranial problems. They do identify some sinusitis in the frontal area and this may account for some of your symptoms. The neck x-ray showed some arthritis without any acute problems. Your also have an elevation of some markers to suggest some muscle breakdown. This can occur occasionally with cholesterol medicines (statins). I would suggest that you stop your cholesterol medicine. Continue your Janumet for your diabetes. Add naproxen anti-inflammatory twice daily with food for the next week. This is for inflammation and pains. To that add Tylenol 500 mg 4 times a day if needed for pain. Amoxicillin 3 times a day for a week for the sinus infection. Also cetirizine antihistamine daily for 1 to 2 weeks. Recheck with your primary care later this week or early next week, call for an appointment. I would anticipate improvement over the next several days to a week or so. Discharge Date/Time: 06/18/20 13:49
[2020-06-18] MEDS ORDERED: SODIUM CHLORIDE 0.9% 1,000 ML IV STA (11:50)
[2020-06-18] MEDS ORDERED: KETOROLAC 15 MG/ML VIAL IVP STA (11:50)
[2020-06-18 12:14] LABS: BASOPHILS # (AUTO) 0.1 10^3/uL (0.0-0.1); BASOPHILS % (AUTO) 1.1 %; EOSINOPHILS # (AUTO) 0.1 10^3/uL (0.0-0.7); EOSINOPHILS % (AUTO) 2.4 %; HCT - HEMATOCRIT 38.8 % (42.0-52.0); HGB - HEMOGLOBIN 13.4 g/dL (14.0-18.0); LYMPHOCYTES # (AUTO) 1.1 10^3/uL (1.5-3.5); LYMPHOCYTES % (AUTO) 24.5 %; MEAN CORPUSCULAR HEMOGLOBIN 30.5 pg (27.0-31.0); MEAN CORPUSCULAR HGB CONC 34.5 g/dL (32.0-36.0); MEAN CORPUSCULAR VOLUME 88.2 fL (80.0-94.0); MEAN PLATELET VOLUME 11.6 fL (7.4-11.4); MONOCYTES # (AUTO) 0.4 10^3/uL (0.0-1.0); MONOCYTES % (AUTO) 9.5 %; NEUTROPHILS # (AUTO) 2.8 10^3/uL (1.5-6.6); NEUTROPHILS % (AUTO) 62.5 %; PLT - PLATELET COUNT 222 10^3/uL (130-450); RED CELL DISTRIBUTION WIDTH 12.3 % (12.0-15.0); WHITE BLOOD COUNT 4.5 x10^3/uL (4.8-10.8)
[2020-06-18 12:15] LABS: VBG BASE EXCESS 2.5 mmol/L (-2 - +2); VBG HCO3 29.4 mmol/L (23-28); VBG OXYGEN SATURATION 33.6 % (60-80); VBG PCO2 55.4 mmHg (41-51); VBG PH 7.343 (7.31-7.41); VBG PO2 23.1 mmHg (25-47); VBG TOTAL CO2 31.1 mmol/L (24-29)
[2020-06-18 12:24] LABS: ALBUMIN 4.3 g/dL (3.2-5.5); ALBUMIN/GLOBULIN RATIO 1.3 (1.0-2.2); ALKALINE PHOSPHATASE 75 IU/L (42-121); ALT ALANINE AMINOTRANSFERASE 34 IU/L (10-60); AST ASPARTATE AMINOTRANSFERASE 29 IU/L (10-42); BILIRUBIN,TOTAL 0.7 mg/dL (0.2-1.0); BUN - BLOOD UREA NITROGEN 21 mg/dL (6-20); CALCIUM 9.6 mg/dL (8.5-10.3); CARBON DIOXIDE - CO2 29 mmol/L (21-32); CHLORIDE 99 mmol/L (101-111); CK- CREATINE KINASE 526 IU/L (22-269); CREATININE 1.1 mg/dL (0.6-1.2); GFR - MDRD 81 (>89); GLUCOSE 204 mg/dL (70-100); LIPASE 28 U/L (22-51); POTASSIUM 4.6 mmol/L (3.5-5.0); SODIUM 136 mmol/L (135-145); TOTAL PROTEIN 7.5 g/dL (6.7-8.2)
--- NOTE | 2020-06-18 12:27 | CT Report ---
PROCEDURE: HEAD WO INDICATIONS: 2 weeks of upper neck/posterior head pain TECHNIQUE: Noncontrast 4.5 mm thick angled axial sections acquired from the foramen magnum to the vertex. For r adiation dose reduction, the following was used: automated exposure control, adjustment of mA and/or kV according to patient size. COMPARISON: None. FINDINGS: Image quality: Excellent. CSF spaces: Basal cisterns are patent. No extra-axial fluid collections. The ventricles are symmet enma in size and shape. Brain: No intracranial bleeds or masses. There is cerebral volume loss for age, with resultant vent ricular and sulcal prominence. There are periventricular and deep white matter chronic small vessel ischemic changes. There is intracranial internal carotid artery atherosclerosis. Skull and face: Calvarium and visualized facial bones appear intact, without suspicious lesions. Sinuses: Moderate mucosal thickening in bilateral maxillary sinuses and ethmoid sinuses are seen. Donny ateral mastoid air cells are well aerated. IMPRESSION: 1. No CT evidence of acute intracranial pathology. 2. Age-appropriate atrophy and moderate white matter chronic small vessel ischemic changes. 3. Bilateral maxillary and ethmoid sinusitis. Reviewed by: Brandan Guardado MD on 06/18/2020 11:26 AM EMPERATRIZ Approved by: Brandan Guardado MD on 06/18/2020 11:26 AM AKDT Station ID: [id number]
--- NOTE | 2020-06-18 12:31 | CT Report ---
PROCEDURE: CERVICAL SPINE WO INDICATIONS: 2 weeks of upper neck/posterior head pain TECHNIQUE: Noncontrast 3 mm thick sections acquired from the skull base to the T4 level. Sagittal and coronal r eformats were then constructed. For radiation dose reduction, the following was used: automated exp osure control, adjustment of mA and/or kV according to patient size. COMPARISON: None. FINDINGS: Image quality: Excellent. Bones: No fractures or dislocations. Mild degenerative endplate changes are noted at C5-6 and C6-7 l evels. Visualized superior ribs are intact. Soft tissues: Prevertebral soft tissues are normal in thickness. No paravertebral hematomas. No ap ical pneumothoraces. IMPRESSION: 1. No acute cervical spine fracture or dislocation. 2. Degenerative disc disease in mid to lower cervical spine. Reviewed by: Brandan Guadrado MD on 06/18/2020 11:30 AM EMPERATRIZ Approved by: Brandan Guardado MD on 06/18/2020 11:30 AM GANAFISA Station ID: [id number]
[2020-06-18 13:04] LABS: KETONES, SERUM (ACETEST) NEGATIVE (NEGATIVE)
[2020-06-18] MEDS ORDERED: AMOXICILLIN 250 MG CAPSULE PO STA (13:27)
[2020-06-18] MEDS ORDERED: CETIRIZINE 10 MG TABLET PO STA (13:27)
[2020-06-18 13:38] VITALS: BP 139/88
== END 2020-06-18 13:49 | disposition home or self-care (01) ==
LOC: ED 10:00
DX: G72.9 Myopathy, unspecified (principal); T50.905A Adverse effect of unspecified drugs, medicaments and biological substances, initial encounter; J01.10 Acute frontal sinusitis, unspecified; R51.9 Headache, unspecified; I10 Essential (primary) hypertension; E11.9 Type 2 diabetes mellitus without complications; F17.200 Nicotine dependence, unspecified, uncomplicated; Z79.84 Long term (current) use of oral hypoglycemic drugs
CPT/HCPCS: 36415; 70450; 72125; 80053; 82009; 82550; 82803; 83690; 85025; 85651; 96374; 99284; A9270

== ENCOUNTER 2020-11-07 01:08 | Emergency (ER) | payer MEDICARE, OTHER ==
[2020-11-07] MEDS ORDERED: PROPARACAINE 0.5% OPHTH DROPS 15 ML LEFTEYE STA (02:00)
--- NOTE | 2020-11-07 02:35 | ED Physician Documentation ---
History of Present Illness - Stated complaint Stated Complaint: L EYE PX - Chief complaint Chief Complaint: Heent - Additonal information Additional information: The patient presents with complaints of left eye redness and irritation.This is been going on for several days. 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 He shows me a bottle of brimonidine. He has not had any recent injuries to his eyes and does not think that he has gotten any foreign bodies into his left eye. He has constant blurring of his vision that has been longstanding and progressively worsening. However, this remains largely unchanged. Review of Systems Constitutional: denies: Fever, Chills Eyes: reports: Loss of vision, Decreased vision, Irritation. denies: Discharge Ears: denies: Tinnitus/ringing Cardiac: denies: Chest pain / pressure Respiratory: denies: Dyspnea GI: denies: Abdominal Pain, Nausea, Vomiting Musculoskeletal: denies: Neck pain Neurologic: denies: Headache PD PAST MEDICAL HISTORY - Past Medical History Past Medical History: Yes Cardiovascular: Hypertension, High cholesterol Respiratory: None Endocrine/Autoimmune: Type 2 diabetes GI: GERD : None HEENT: Glaucoma Psych: None Musculoskeletal: None Derm: None - Past Surgical History Past Surgical History: Yes Ortho: ACL reconstruction HEENT: Cataracts - Present Medications Home Medications: Ambulatory Orders Medication Instructions Recorded Confirmed Metoprolol Tartrate 25 mg ORAL DAILY 12/29/13 10/27/16 Cholecalciferol [Vitamin D3] 5,000 unit PO BID #60 capsule 10/30/16 HYDROcod/ACETAM 5/325 [[place] 5/325] 1 tab PO Q4HR PRN #30 tablet 10/30/16 Multivitamin W/Minerals [Theragran 1 tab PO DAILYWM #30 tablet 10/30/16 M] Sulfamethox/Trimeth 800/160 1 tab PO BID #20 tablet 10/30/16 [Bactrim Ds] metFORMIN [Glucophage] 500 mg PO BID #0 10/30/16 06/18/20 Amoxicillin 500 mg PO TID #21 cap 06/18/20 Cetirizine [ZyrTEC] 10 mg PO DAILY #15 tablet 06/18/20 Naproxen Sodium 275 mg PO BID #15 tablet 06/18/20 - Allergies Allergies/Adverse Reactions: Allergies Allergy/AdvReac Type Severity Reaction Status Date / Time No Known Drug Allergies Allergy Verified 11/07/20 01:24 - Social History Does the pt smoke?: Yes Smoking Status: Current every day smoker Does the pt drink ETOH?: Yes Does the pt have substance abuse?: No - Immunizations Immunizations are current?: Yes Immunizations: TDAP current <10years - POLST POLST Status: Full Code PD ED PE NORMAL - General General: No acute distress - HEENT HEENT: Atraumatic, EOMI - Neck Neck: Supple, no meningeal sign, No JVD, No bruit - Cardiac Cardiac: RRR, No murmur - Respiratory Respiratory: No respiratory distress - Abdomen Abdomen: Normal bowel sounds, Soft, Non tender, Non distended PD ED PE EXPANDED - Eyes Eyes: Visual acuity - see nn (On funduscopy, I was not able to visualize s tructures on the right. Left-sided funduscopy was unremarkable. On tonometry, 3 separate measurements were taken and his IOC was 16. On the left there was conjunctival injection, erythema and swelling.), Unequal pupils, Abnormal accommodation, Temp arteries nontender. No: Conj/sclera FB, Subconj hemorrhage, Corneal FB, Corneal abrasion, Corneal ulcer, Fluorescein uptake, Papilledema Results - Vitals Vitals: Vital Signs - 24 hr 11/07/20 01:21 Temperature 36.2 C L Heart Rate 79 Respiratory 15 Rate Blood Pressure 172/78 H O2 Saturation 97 Oxygen O2 Source Room air PD MEDICAL DECISION MAKING - ED course Complexity details: considered differential (Clinically, the patient appears to be suffering conjunctivitis likely due to the brimonidine use. However, he does appear to have reasonable intraocular pressures. 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
[2020-11-07 03:01] VITALS: BP 166/78
== END 2020-11-07 02:45 | disposition home or self-care (01) ==
LOC: ED 01:08
DX: H10.89 Other conjunctivitis (principal); I10 Essential (primary) hypertension; E11.36 Type 2 diabetes mellitus with diabetic cataract; H26.9 Unspecified cataract; Z79.84 Long term (current) use of oral hypoglycemic drugs; F17.200 Nicotine dependence, unspecified, uncomplicated
CPT/HCPCS: 99282; 99284; J3490

== ENCOUNTER 2020-12-08 03:20 | Emergency (ER) | payer MEDICARE, OTHER ==
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
[2020-12-08 04:26] LABS: BASOPHILS # (AUTO) 0.1 10^3/uL (0.0-0.1); BASOPHILS % (AUTO) 0.9 %; EOSINOPHILS # (AUTO) 0.2 10^3/uL (0.0-0.7); EOSINOPHILS % (AUTO) 4.1 %; HCT - HEMATOCRIT 39.7 % (42.0-52.0); HGB - HEMOGLOBIN 13.4 g/dL (14.0-18.0); LYMPHOCYTES # (AUTO) 1.8 10^3/uL (1.5-3.5); LYMPHOCYTES % (AUTO) 34.3 %; MEAN CORPUSCULAR HGB CONC 33.8 g/dL (32.0-36.0); MEAN PLATELET VOLUME 11.4 fL (7.4-11.4); MONOCYTES # (AUTO) 0.5 10^3/uL (0.0-1.0); NEUTROPHILS # (AUTO) 2.7 10^3/uL (1.5-6.6); NEUTROPHILS % (AUTO) 50.7 %; PLT - PLATELET COUNT 224 10^3/uL (130-450); RED BLOOD COUNT 4.46 10^6/uL (4.70-6.10); RED CELL DISTRIBUTION WIDTH 12.1 % (12.0-15.0); WHITE BLOOD COUNT 5.3 x10^3/uL (4.8-10.8)
[2020-12-08 04:40] LABS: ACETAMINOPHEN < 10 ug/mL (10-30); BUN - BLOOD UREA NITROGEN 24 mg/dL (6-20); CARBON DIOXIDE - CO2 26 mmol/L (21-32); CHLORIDE 98 mmol/L (101-111); CREATININE 1.3 mg/dL (0.6-1.2); ETOH - ETHANOL < 5.0 mg/dL; GFR - MDRD 67 (>89); GLUCOSE 339 mg/dL (70-100); POTASSIUM 4.2 mmol/L (3.5-5.0); SALICYLATE < 6.0 mg/dL; SODIUM 134 mmol/L (135-145)
[2020-12-08 04:49] LABS: MUDS CUTOFF CONCENTRATIONS CUTOFF CONC BELOW:
[2020-12-08 04:50] LABS: BILIRUBIN,URINE NEGATIVE (NEGATIVE); GLUCOSE, URINE (UA) >=1000 mg/dL (NEGATIVE); KETONES,URINE (UA) NEGATIVE (NEGATIVE); LEUKOCYTE ESTERASE, URINE NEGATIVE (NEGATIVE); NITRITE,URINE NEGATIVE (NEGATIVE); OCCULT BLOOD,URINE TRACE-INTA (NEGATIVE); PROTEIN,URINE TRACE mg/dL (NEGATIVE); UROBILINOGEN,URINE 0.2 (NORMAL) E.U./dL (NORMAL)
[2020-12-08 04:51] LABS: CLARITY,URINE CLEAR (CLEAR)
[2020-12-08 05:02] LABS: AMPHETAMINE SCREEN,URINE NEGATIVE (NEGATIVE); BARBITURATE SCREEN,UR NEGATIVE (NEGATIVE); BENZODIAZEPINES SCREEN, URINE NEGATIVE (NEGATIVE); COCAINE SCREEN URINE NEGATIVE (NEGATIVE); METHADONE SCREEN, URINE NEGATIVE (NEGATIVE); METHAMPHETAMINES SCREEN, URINE NEGATIVE (NEGATIVE); OPIATE SCREEN, URINE NEGATIVE (NEGATIVE); OXYCODONE SCREEN, URINE NEGATIVE (NEGATIVE); PROPOXYPHENE SCREEN, URINE NEGATIVE (NEGATIVE); THC CANNABINOID SCREEN, URINE NEGATIVE (NEGATIVE); TRICYCLIC ANTIDEPRESSANT,URINE NEGATIVE (NEGATIVE)
[2020-12-08 08:28] LABS: B. PARAPERTUSSIS- RESP PCR PAN NOT DETECTED; B. PERTUSSIS- RESP PCR PANEL NOT DETECTED; C. PNEUMONIAE- RESP PCR PANEL NOT DETECTED; CORONAVIRUS 229E-RESP PCR NOT DETECTED; CORONAVIRUS HKU1-RESP PCR NOT DETECTED; CORONAVIRUS NL63-RESP PCR NOT DETECTED; CORONAVIRUS OC43-RESP PCR NOT DETECTED; HUMAN METAPNEUMOVIRUS NOT DETECTED; INFLUENZA A- RESP PCR PANEL NOT DETECTED; INFLUENZA B - RESP PCR PANEL NOT DETECTED; M. PNEUMONIAE- RESP PCR PANEL NOT DETECTED; PARAINFLUENZA VIRUS 1 NOT DETECTED; PARAINFLUENZA VIRUS 2 NOT DETECTED; PARAINFLUENZA VIRUS 3 NOT DETECTED; PARAINFLUENZA VIRUS 4 NOT DETECTED; RHINOVIRUS/ENTEROVIRUS NOT DETECTED; RSV- RESP PCR PANEL NOT DETECTED; SARS-CoV-2 -RESP PCR PANEL NOT DETECTED
[2020-12-08] MEDS ORDERED: METOPROLOL SUCCINATE 25 MG TABLET PO SCH (09:00)
[2020-12-08] MEDS: metFORMIN 500 MG TABLET PO SCH ×2 (09:34→20:29)
--- NOTE | 2020-12-08 13:39 | ED Physician Documentation ---
ED Addendum - Addendum Addendum: 12/08/20 13:38 Signout to me [address] Dr. Michaels after shift change. Seen by social work and feeling to be gravely disabled. DCR was dispatched. It was requested that we order an EKG: Twelve-lead EKG done at 1322 hrs. discloses normal sinus rhythm with a rate of 71. He has a right bundle branch block. No prolonged QT. No ischemic ST-T changes. 12/08/20 17:17 The DCR felt that given his age and the atypicality of a psychotic break at this age CT may be necessary for placement noting that the patient was also complaining of some mild headaches and this was ordered. 12/08/20 17:41 CT of the head without contrast interpreted contemporaneously by me shows atrophy and chronic changes with sinus disease but no acute disease. Nothing that would cause his current symptoms or findings. 12/08/20 18:28 DCR Adam is looking for beds again for him. Care back to Dr. Griffin Michaels at shift change pending disposition.
--- NOTE | 2020-12-08 17:37 | CT Report ---
PROCEDURE: HEAD WO INDICATIONS: headaches TECHNIQUE: Noncontrast 4.5 mm thick angled axial sections acquired from the foramen magnum to the vertex. For r adiation dose reduction, the following was used: automated exposure control, adjustment of mA and/or kV according to patient size. COMPARISON: None. FINDINGS: Image quality: Excellent. CSF spaces: Basal cisterns are patent. No extra-axial fluid collections. Ventricles are normal in size and shape. Brain: No midline shift. No intracranial masses or hemorrhage. Jacobo-white matter interface is norm al. Mild atrophy and moderate multifocal chronic ischemic changes noted. Sclerotic vascular calcification is noted in the cavernous portions of both internal carotid arteries . Skull and face: Calvarium and visualized facial bones are intact, without suspicious lesions. Glauc bennett drainage device noted on the left ocular globe. Sinuses: There is mucosal thickening and debris in the left sphenoid and bilateral maxillary sinuses, similar to prior. IMPRESSION: 1. Atrophy and chronic ischemic change without acute hemorrhage or mass effect. 2. Left sphenoid and bilateral maxillary mucosal sinus disease. Reviewed by: Warren Trejo MD on 12/08/2020 4:36 PM [facility] Approved by: Warren rTejo MD on 12/08/2020 4:36 PM AK[facility] Station ID: [id number]
[2020-12-08] MEDS ORDERED: ACETAMINOPHEN 325 MG TABLET PO STA (19:20)
[2020-12-08 20:33] VITALS: BP 160/86
--- NOTE | 2020-12-09 08:34 | ED Physician Documentation ---
ED Addendum - Addendum Addendum: 12/09/20 08:33 Care of patient turned back over to dc by Dr. Valdez at end of his shift pending final disposition. Patient was evaluated by SW and then DCR during the day and arrangements were made for transfer to [facility] for inpatient mental health treatment.
== END 2020-12-08 20:33 ==
LOC: ED 03:20
DX: F22 Delusional disorders (principal); R51.9 Headache, unspecified; Z20.822 Contact with and (suspected) exposure to COVID-19; J32.1 Chronic frontal sinusitis; J32.0 Chronic maxillary sinusitis; G31.9 Degenerative disease of nervous system, unspecified; I10 Essential (primary) hypertension; I45.10 Unspecified right bundle-branch block; E11.9 Type 2 diabetes mellitus without complications; Z79.84 Long term (current) use of oral hypoglycemic drugs; F17.200 Nicotine dependence, unspecified, uncomplicated
CPT/HCPCS: 36415; 70450; 80048; 80306; 80307; 81003; 84443; 85025; 87631; 93005; 99285; A9270; G0480; 0202U; 80320; 80329; 81001; 87086

== ENCOUNTER 2022-02-08 22:16 | Emergency (ER) | payer MEDICARE, OTHER ==
[2022-02-08] MEDS ORDERED: diphenhydrAMINE INJ 50 MG/ML VIAL IVP STA (22:40)
[2022-02-08] MEDS ORDERED: predniSONE 20 MG TABLET PO STA (22:40)
[2022-02-08] MEDS ORDERED: FAMOTIDINE 20 MG/2 ML VIAL IVP STA (22:40)
--- NOTE | 2022-02-09 01:05 | ED Physician Documentation ---
History of Present Illness - Stated complaint Stated Complaint: POSSIBLE ALLERGIC REACTION - Chief complaint Chief Complaint: Allergic Rx - History obtained from History obtained from: Patient, Family () - Additonal information Additional information: Patient is a 71-year-old male presenting for evaluation of lip swelling that is been present since 11:00 this morning and gradually getting worse. Patient was seen at the walk-in clinic yesterday for conjunctivitis and started on Polytrim eyedrops as well as Augmentin. Patient denies being on an ELIZABETH inhibitor Or an ARB. Denies previous history of similar symptoms.Patient denies trouble breathing, trouble swallowing, tongue swelling.Patient denies any new foods or exposures. He does not feel like he was bit or stung by anything. When asked further about the reason for Augmentin, patient states that the walk- in clinic wrote the prescription for that for his eye. I asked whether his eyelid area was red or swollen and patient and deny this.They were told the clinic Practitioner just felt that the oral antibiotics might work quicker. Review of Systems Constitutional: denies: Fever Cardiac: denies: Chest pain / pressure Respiratory: denies: Dyspnea GI: denies: Abdominal Pain Musculoskeletal: denies: Back pain Neurologic: denies: Headache PD PAST MEDICAL HISTORY - Past Medical History Past Medical History: Yes Cardiovascular: Hypertension, High cholesterol Respiratory: None Endocrine/Autoimmune: Type 2 diabetes GI: GERD : None HEENT: Glaucoma Psych: None Musculoskeletal: None Derm: None - Past Surgical History Past Surgical History: Yes Ortho: ACL reconstruction HEENT: Cataracts - Present Medications Home Medications: Ambulatory Orders Medication Instructions Recorded Confirmed Metoprolol Tartrate 25 mg ORAL DAILY 12/29/13 01/21/22 Cholecalciferol [Vitamin D3] 5,000 unit PO BID #60 capsule 10/30/16 01/21/22 HYDROcod/ACETAM 5/325 [[place] 5/325] 1 tab PO Q4HR PRN #30 tablet 10/30/16 01/21/22 Multivitamin W/Minerals [Theragran 1 tab PO DAILYWM #30 tablet 10/30/16 01/21/22 M] metFORMIN [Glucophage] 500 mg PO BID #0 10/30/16 01/21/22 Cetirizine [ZyrTEC] 10 mg PO DAILY #15 tablet 06/18/20 01/21/22 Naproxen Sodium 275 mg PO BID #15 tablet 06/18/20 01/21/22 Duloxetine HCl [Cymbalta] 20 mg PO QID 12/08/20 01/21/22 Cetirizine [ZyrTEC] 10 mg PO DAILY #7 tablet 02/09/22 predniSONE [Deltasone] 60 mg PO DAILY 4 Days #12 tablet 02/09/22 - Allergies Allergies/Adverse Reactions: Allergies Allergy/AdvReac Type Severity Reaction Status Date / Time No Known Drug Allergies Allergy Verified 02/08/22 22:31 - Social History Does the pt smoke?: Yes Smoking Status: Current every day smoker Does the pt drink ETOH?: Yes Does the pt have substance abuse?: No - Immunizations Immunizations are current?: Yes Immunizations: TDAP current <10years - POLST Patient has POLST: No POLST Status: Full Code PD ED PE NORMAL - General General: Alert and oriented X 3, No acute distress, Well developed/nourished - HEENT HEENT: Atraumatic, Moist mucous membranes, Pharynx benign (No tongue or uvular edema, normal phonation), Other (Mild swelling to upper and lower lip; Slight right conjunctival injection, no eyelid swelling or erythema) - Neck Neck: Supple, no meningeal sign - Cardiac Cardiac: RRR, No murmur - Respiratory Respiratory: No respiratory distress, Clear bilaterally - Abdomen Abdomen: Soft, Non tender - Derm Derm: Warm and dry - Extremities Extremities: No edema - Neuro Neuro: Normal speech Results - Vitals Vitals: Vital Signs - 24 hr 02/08/22 02/08/22 02/09/22 22:20 22:36 01:08 Temperature 36.2 C L 36.6 C Heart Rate 98 97 82 Respiratory 24 14 16 Rate Blood Pressure 172/89 H 153/79 H 149/90 H O2 Saturation 100 100 98 Oxygen O2 Source Room air PD MEDICAL DECISION MAKING - ED course Complexity details: re-evaluated patient, d/w patient, d/w family ED course: Patient presenting for evaluation of lip swelling. He does not take an ELIZABETH inhibitor or an ARB. He has no tongue swelling or uvular edema or abnormal phonation. He is having no difficulties with his secretions or difficulties with breathing.Unclear what is causing this reaction. I do not see signs of a bug bite or hives. Patient given steroids and Antihistamines. Patient had clinical improvement in his symptoms.He had been started on p.o. Augmentin for conjunctivitis. However I do not see signs of Preseptal cellulitis and per the patient and his he did not have symptoms when he went to the walk-in clinic to suggest preseptal cellulitis. Therefore I will have him stop the p.o. antibiotic and just continue with the ophthalmic drops. Patient to continue on steroids and antihistamines. Patient to have close follow-up with his primary care doctor. He and his were advised on strict return precautions. Departure - Departure Disposition: Home, Self Care Clinical Impression: Angioedema of lips Condition: Stable Instructions: ED Angioedema Prescriptions: predniSONE [Deltasone] 60 mg PO DAILY 4 Days #12 tablet Cetirizine [ZyrTEC] 10 mg PO DAILY #7 tablet Comments: You have had an allergic reaction which is causing swelling of your lips. It is not exactly clear what is triggering this episode. Your symptoms do appear to be improving. I will continue you on steroids for the next several days as well as antihistamines. I would stop taking the oral antibiotic (Augmentin) you Were prescribed. I would call your primary care doctor on Thursday to review your episode as well as discussed your current medications.If you have any worsening symptoms please return to the ER. I have sent your prescriptions to [facility] in [place]. Discharge Date/Time: 02/09/22 01:08
[2022-02-09 01:08] VITALS: BP 149/90
== END 2022-02-09 01:08 | disposition home or self-care (01) ==
LOC: ED 22:16
DX: T78.3XXA Angioneurotic edema, initial encounter (principal); H10.9 Unspecified conjunctivitis; F17.200 Nicotine dependence, unspecified, uncomplicated
CPT/HCPCS: 96374; 99282; 99284; J1200; J7512